=== PATIENT | male | born 1960 | race Two or more races ===

== ENCOUNTER 2021-08-30 07:59 | Inpatient (IN) | payer MEDICARE, MEDICAID ==
[~2021-08-30] VITALS: Ht 180.3 cm; Wt 133.1 kg
[2021-08-30 08:55] LABS: Basophils # (auto) 0.1 10 ^3/uL (0-0.2); Basophils % (auto) 0.7 % (0.0-2.0); Eosinophils # (auto) 0.1 10 ^3/uL (0-0.8); Eosinophils % (auto) 1.7 % (0.0-7.0); Hematocrit 51.9 % (41.0-53.0); Hemoglobin 17.7 g/dL (13.5-17.5); Lymphocytes # (auto) 0.9 10 ^3/uL (0.4-5.4); Lymphocytes % (auto) 11.2 % (10.0-50.0); Mean Corpuscular Hemoglobin 30.5 pg (28.0-32.0); Mean Corpuscular Hgb Conc. 34.1 g/dL (32.0-36.0); Mean Corpuscular Volume 89.5 fL (80.0-100.0); Monocytes # (auto) 0.9 10 ^3/uL (0-1.3); Monocytes % (auto) 10.4 % (0.0-12.0); Neutrophils # (auto) 6.3 10 ^3/uL (1.6-8.6); Nucleated Red Blood Cells % 0.1 %; Red Cell Distribution Width 13.8 % (11.8-14.3); White Blood Cell 8.3 10^3/uL (4.4-10.8)
[2021-08-30 09:13] LABS: Albumin 3.4 g/dL (3.4-5.0); Calcium 8.4 mg/dL (8.5-10.1); Potassium 4.2 mmol/L (3.5-5.1)
[2021-08-30 09:16] LABS: BUN/Creatinine Ratio 13.4; Bilirubin, Total 0.6 mg/dL (0.2-1.0); Total Protein 7.2 g/dL (6.4-8.2)
[2021-08-30 09:52] LABS: Urine Bacteria NONE SEEN /hpf (None Seen); Urine Blood Negative /uL (Negative); Urine Mucus FEW (None Seen); Urine Specific Gravity 1.023 (1.001-1.035); Urine WBC <1 /hpf (0 - 3)
[2021-08-30] MEDS ORDERED: SODIUM CHLORIDE 0.9% 1,000 ML IV ONE (10:15)
[2021-08-30] MEDS ORDERED: DEXTROSE (50%) 50ML SYRG IV PRN (11:15)
[2021-08-30] MEDS ORDERED: ALBUTEROL SULF 2.5 MG/0.5ML(0.5%) NEB SOLN NEB PRN (11:15)
[2021-08-30] MEDS ORDERED: LABETALOL HCL 5 MG/ML 4ML SYRINGE IV PRN (11:15)
[2021-08-30] MEDS ORDERED: NITROGLYCERIN 0.4 MG SL TAB SL PRN (11:15)
[2021-08-30] MEDS ORDERED: MORPHINE SULFATE INJ 2 MG/ml SYRG IV PRN ×2 (11:15)
[2021-08-30] MEDS ORDERED: LORazepam 2MG/ML-1ML VIAL IV PRN (11:15)
[2021-08-30] MEDS: InsuLIN REG 1unit/0.01ml Soln (100units/ml) SC SCH ×2 (12:00→18:00)
[2021-08-30] MEDS: ACCU-CHEK COMFORT CURVE STRIP VI SCH ×2 (12:25→18:15)
[2021-08-30 13:34] VITALS: BP 124/51
[2021-08-30 22:00] VITALS: BP 115/70
[2021-08-30 22:01] VITALS: BP 148/97
[2021-08-30] MEDS ORDERED: MONT-8 PO (23:01)
[2021-08-30] MEDS ORDERED: LISI2.5T47 PO (23:01)
[2021-08-30] MEDS ORDERED: METF-370 PO (23:02)
[2021-08-31 05:00] VITALS: BP 136/85
[2021-08-31 05:39] LABS: Basophils # (auto) 0 10 ^3/uL (0-0.2); Basophils % (auto) 0.4 % (0.0-2.0); Eosinophils # (auto) 0.2 10 ^3/uL (0-0.8); Eosinophils % (auto) 2.4 % (0.0-7.0); Hematocrit 49.6 % (41.0-53.0); Hemoglobin 17.1 g/dL (13.5-17.5); Lymphocytes # (auto) 0.9 10 ^3/uL (0.4-5.4); Lymphocytes % (auto) 12.7 % (10.0-50.0); Mean Corpuscular Hgb Conc. 34.6 g/dL (32.0-36.0); Mean Corpuscular Volume 89.7 fL (80.0-100.0); Monocytes # (auto) 0.8 10 ^3/uL (0-1.3); Monocytes % (auto) 11.8 % (0.0-12.0); Neutrophils % (auto) 72.7 % (37.0-80.0); Nucleated Red Blood Cells % 0.1 %; Red Blood Cells 5.52 10^6/uL (4.5-5.90); Red Cell Distribution Width 13.8 % (11.8-14.3); White Blood Cell 6.9 10^3/uL (4.4-10.8)
[2021-08-31] MEDS: ACCU-CHEK COMFORT CURVE STRIP VI SCH ×5 (05:55→23:45)
[2021-08-31] MEDS: InsuLIN REG 1unit/0.01ml Soln (100units/ml) SC SCH ×5 (06:00→23:45)
[2021-08-31 06:06] LABS: Albumin 3.1 g/dL (3.4-5.0); Calcium 8.3 mg/dL (8.5-10.1); Potassium 3.8 mmol/L (3.5-5.1)
[2021-08-31 06:09] LABS: BUN/Creatinine Ratio 15.8; Bilirubin, Total 0.8 mg/dL (0.2-1.0); Total Protein 6.8 g/dL (6.4-8.2)
[2021-08-31 08:15] VITALS: BP 141/83
[2021-08-31] MEDS: TRIAMCINOLONE ACET0.5% TOPICAL CRE 15GM TOP SCH (09:19)
[2021-08-31] MEDS: ENOXAPARIN SOD 40 MG/0.4 ML SYRINGE SC SCH (09:19)
[2021-08-31] MEDS: PANTOPRAZOLE 40 MG/10 ML VIAL INJ IV SCH (09:19)
[2021-08-31 12:10] VITALS: BP 120/76
[2021-08-31 16:20] VITALS: BP 152/92
[2021-08-31] MEDS ORDERED: LORazepam 0.5 MG TAB PO PRN (16:45)
[2021-08-31 22:00] VITALS: BP 129/87
[2021-09-01 05:00] VITALS: BP 127/84
[2021-09-01 05:23] LABS: Basophils # (auto) 0 10 ^3/uL (0-0.2); Basophils % (auto) 0.3 % (0.0-2.0); Eosinophils # (auto) 0.1 10 ^3/uL (0-0.8); Hematocrit 50.6 % (41.0-53.0); Hemoglobin 17.4 g/dL (13.5-17.5); Lymphocytes % (auto) 14.7 % (10.0-50.0); Mean Corpuscular Hgb Conc. 34.5 g/dL (32.0-36.0); Mean Corpuscular Volume 89.8 fL (80.0-100.0); Monocytes # (auto) 0.7 10 ^3/uL (0-1.3); Monocytes % (auto) 11.1 % (0.0-12.0); Neutrophils # (auto) 4.7 10 ^3/uL (1.6-8.6); Neutrophils % (auto) 71.9 % (37.0-80.0); Nucleated Red Blood Cells % 0.2 %; Red Blood Cells 5.63 10^6/uL (4.5-5.90); Red Cell Distribution Width 13.8 % (11.8-14.3); White Blood Cell 6.6 10^3/uL (4.4-10.8)
[2021-09-01 05:33] LABS: Magnesium 2.3 mg/dL (1.6-2.6); Potassium 4.3 mmol/L (3.5-5.1)
[2021-09-01 05:39] LABS: Albumin 3.2 g/dL (3.4-5.0); Bilirubin, Total 0.6 mg/dL (0.2-1.0); Calcium 8.8 mg/dL (8.5-10.1); Phosphorus 4.1 mg/dL (2.5-4.90)
[2021-09-01] MEDS: ACCU-CHEK COMFORT CURVE STRIP VI SCH ×4 (05:44→23:21)
[2021-09-01] MEDS: InsuLIN REG 1unit/0.01ml Soln (100units/ml) SC SCH ×4 (05:48→23:21)
[2021-09-01 08:20] VITALS: BP 130/78
[2021-09-01 09:00] VITALS: BP 130/78
[2021-09-01] MEDS: ENOXAPARIN SOD 40 MG/0.4 ML SYRINGE SC SCH (10:59)
[2021-09-01] MEDS: PANTOPRAZOLE 40 MG/10 ML VIAL INJ IV SCH (10:59)
[2021-09-01] MEDS: TRIAMCINOLONE ACET0.5% TOPICAL CRE 15GM TOP SCH (12:21)
[2021-09-01 13:00] VITALS: BP 162/92
[2021-09-01 16:38] VITALS: BP 151/84
[2021-09-01] MEDS: ACETAMINOPHEN 500 MG TAB PO PRN (16:58)
[2021-09-01 22:00] VITALS: BP 141/50
[2021-09-02] VITALS (7 sets, daily range): BP systolic 138–173; BP diastolic 81–94
[2021-09-02] MEDS: ACCU-CHEK COMFORT CURVE STRIP VI SCH ×4 (06:35→23:01)
[2021-09-02] MEDS: InsuLIN REG 1unit/0.01ml Soln (100units/ml) SC SCH ×4 (06:37→23:01)
[2021-09-02] MEDS: ACETAMINOPHEN 500 MG TAB PO PRN (06:39)
[2021-09-02] MEDS: PANTOPRAZOLE 40 MG/10 ML VIAL INJ IV SCH (09:44)
[2021-09-02] MEDS: ENOXAPARIN SOD 40 MG/0.4 ML SYRINGE SC SCH (09:45)
[2021-09-02] MEDS: TRIAMCINOLONE ACET0.5% TOPICAL CRE 15GM TOP SCH (09:45)
[2021-09-03 05:00] VITALS: BP 138/76
[2021-09-03] MEDS: ACCU-CHEK COMFORT CURVE STRIP VI SCH ×4 (06:31→23:55)
[2021-09-03] MEDS: InsuLIN REG 1unit/0.01ml Soln (100units/ml) SC SCH ×4 (06:33→23:55)
[2021-09-03 08:40] VITALS: BP 143/80
[2021-09-03] MEDS: PANTOPRAZOLE 40 MG/10 ML VIAL INJ IV SCH (08:49)
[2021-09-03] MEDS: ENOXAPARIN SOD 40 MG/0.4 ML SYRINGE SC SCH (08:49)
[2021-09-03] MEDS ORDERED: IOHEXOL 350 MG/ML 100ML IJ ONE (10:10)
[2021-09-03 11:18] LABS: INR 1.05 (0.9-1.15)
[2021-09-03] MEDS: TRIAMCINOLONE ACET0.5% TOPICAL CRE 15GM TOP SCH (12:00)
[2021-09-03 12:54] VITALS: BP 116/81
[2021-09-03 16:40] VITALS: BP 126/84
[2021-09-03 20:20] VITALS: BP 122/85
[2021-09-03 22:00] VITALS: BP 122/85
[2021-09-04 05:00] VITALS: BP 112/86
[2021-09-04] MEDS: InsuLIN REG 1unit/0.01ml Soln (100units/ml) SC SCH ×4 (06:00→23:50)
[2021-09-04] MEDS: ACCU-CHEK COMFORT CURVE STRIP VI SCH ×4 (06:25→23:50)
[2021-09-04] MEDS: PANTOPRAZOLE 40 MG/10 ML VIAL INJ IV SCH (08:52)
[2021-09-04 08:54] VITALS: BP 129/89
[2021-09-04] MEDS: ENOXAPARIN SOD 40 MG/0.4 ML SYRINGE SC SCH (09:01)
[2021-09-04] MEDS: TRIAMCINOLONE ACET0.5% TOPICAL CRE 15GM TOP SCH (09:01)
[2021-09-04] MEDS: ACETAMINOPHEN 500 MG TAB PO PRN (09:05)
[2021-09-04 13:00] VITALS: BP_SYST 128; BP_SYST 98; BP_DIAS 69; BP_DIAS 86
[2021-09-04 17:00] VITALS: BP 123/83
[2021-09-04] MEDS: metFORMIN HYDROCHLORIDE 500 MG TAB PO SCH ×2 (18:00→18:07)
[2021-09-04 19:20] LABS: Potassium 4.2 mmol/L (3.5-5.1)
[2021-09-04 19:21] LABS: BUN/Creatinine Ratio 12.6
[2021-09-04] MEDS: MONTELUKAST SODIUM 10 MG TAB PO SCH (21:45)
[2021-09-04 21:58] VITALS: BP 140/81
[2021-09-05 04:44] VITALS: BP 123/84
[2021-09-05] MEDS: InsuLIN REG 1unit/0.01ml Soln (100units/ml) SC SCH ×3 (05:53→16:59)
[2021-09-05] MEDS: ACCU-CHEK COMFORT CURVE STRIP VI SCH ×4 (05:53→21:06)
[2021-09-05] MEDS: ACETAMINOPHEN 500 MG TAB PO PRN ×2 (05:54→17:00)
[2021-09-05] MEDS: ENOXAPARIN SOD 40 MG/0.4 ML SYRINGE SC SCH (07:12)
[2021-09-05 08:20] VITALS: BP 136/87
[2021-09-05] MEDS: PANTOPRAZOLE 40 MG/10 ML VIAL INJ IV SCH (09:54)
[2021-09-05] MEDS: LISINOPRIL 5 MG TAB PO SCH (09:55)
[2021-09-05 10:59] VITALS: BP 136/87
[2021-09-05 12:30] VITALS: BP 121/88
[2021-09-05] MEDS: TRIAMCINOLONE ACET0.5% TOPICAL CRE 15GM TOP SCH (12:43)
[2021-09-05 16:42] VITALS: BP 129/84
[2021-09-05 22:24] LABS: Calcium 8.8 mg/dL (8.5-10.1); Potassium 4.3 mmol/L (3.5-5.1)
[2021-09-05] MEDS: MONTELUKAST SODIUM 10 MG TAB PO SCH (22:34)
[2021-09-06 05:00] VITALS: BP 118/76
[2021-09-06] MEDS: ACCU-CHEK COMFORT CURVE STRIP VI SCH ×4 (05:44→23:48)
[2021-09-06] MEDS: InsuLIN REG 1unit/0.01ml Soln (100units/ml) SC SCH ×5 (05:45→23:48)
[2021-09-06 06:38] LABS: BUN/Creatinine Ratio 15.8; Calcium 8.8 mg/dL (8.5-10.1)
[2021-09-06 08:25] VITALS: BP 119/86
[2021-09-06] MEDS: LISINOPRIL 5 MG TAB PO SCH (08:45)
[2021-09-06] MEDS: PANTOPRAZOLE 40 MG/10 ML VIAL INJ IV SCH (08:45)
[2021-09-06] MEDS: TRIAMCINOLONE ACET0.5% TOPICAL CRE 15GM TOP SCH (08:45)
[2021-09-06] MEDS: ENOXAPARIN SOD 40 MG/0.4 ML SYRINGE SC SCH (08:45)
[2021-09-06] MEDS: ACETAMINOPHEN 500 MG TAB PO PRN (08:55)
[2021-09-06 12:20] VITALS: BP 124/80
[2021-09-06 16:15] VITALS: BP 124/79
[2021-09-06 20:00] VITALS: BP 117/78
[2021-09-06] MEDS: MONTELUKAST SODIUM 10 MG TAB PO SCH (21:46)
[2021-09-06 22:00] VITALS: BP 117/78
[2021-09-07 05:00] VITALS: BP 134/71
[2021-09-07] MEDS: InsuLIN REG 1unit/0.01ml Soln (100units/ml) SC SCH ×4 (06:00→23:54)
[2021-09-07] MEDS: ACCU-CHEK COMFORT CURVE STRIP VI SCH ×4 (06:07→23:54)
[2021-09-07] MEDS: PANTOPRAZOLE 40 MG/10 ML VIAL INJ IV SCH (08:50)
[2021-09-07] MEDS: LISINOPRIL 5 MG TAB PO SCH (08:51)
[2021-09-07 09:05] VITALS: BP 121/73
[2021-09-07] MEDS: ENOXAPARIN SOD 40 MG/0.4 ML SYRINGE SC SCH (09:22)
[2021-09-07] MEDS: TRIAMCINOLONE ACET0.5% TOPICAL CRE 15GM TOP SCH (09:23)
[2021-09-07] MEDS ORDERED: BUPIVACAINE 0.25% INJ 50ML VIAL ONE (12:17)
[2021-09-07] MEDS ORDERED: HEPARIN SODIUM (PORCINE) 5000 UNITS/ML 1ML VIAL ONE (12:17)
[2021-09-07] MEDS ORDERED: HEPARIN 1,000 UNITS/ml 1ML VIAL ONE (12:17)
[2021-09-07 12:23] VITALS: BP 119/74
[2021-09-07] MEDS ORDERED: MIDAZOLAM HCL 2MG/2ML 2ml VIAL (1mg/ml) ONE (12:40)
[2021-09-07] MEDS ORDERED: KETAMINE HCL 10 ML ONE (12:40)
[2021-09-07] MEDS ORDERED: GLYCOPYRROLATE 0.2 MG/ML 1ML VIAL ONE (12:41)
[2021-09-07] MEDS ORDERED: LIDOCAINE 2% (LOCAL ANESTH.) PF 5ml SDV ONE (12:41)
[2021-09-07] MEDS ORDERED: PROPOFOL 10 MG/ML 20 ML IV ONE (12:41)
[2021-09-07] MEDS ORDERED: ONDANSETRON HCL 4 MG/2 ML VIAL ONE (12:41)
[2021-09-07] MEDS ORDERED: ceFAZolin 1GM VL ONE ×2 (12:41→13:34)
[2021-09-07] MEDS ORDERED: fentaNYL CITRATE 100 MCG/2 ML VL ONE (12:55)
[2021-09-07] MEDS ORDERED: ACCU-CHEK COMFORT CURVE STRIP VI ONE (14:00)
[2021-09-07] MEDS ORDERED: HYDROmorphone HCL 2 MG/ML VL/or syr IV PRN (14:00)
[2021-09-07] MEDS ORDERED: ONDANSETRON HCL 4 MG/2 ML VIAL IV PRN (14:00)
[2021-09-07 14:58] LABS: Basophils # (auto) 0.1 10 ^3/uL (0-0.2); Basophils % (auto) 0.6 % (0.0-2.0); Eosinophils # (auto) 0.1 10 ^3/uL (0-0.8); Eosinophils % (auto) 1.2 % (0.0-7.0); Hematocrit 51.4 % (41.0-53.0); Hemoglobin 16.9 g/dL (13.5-17.5); Lymphocytes # (auto) 0.9 10 ^3/uL (0.4-5.4); Lymphocytes % (auto) 11.3 % (10.0-50.0); Mean Corpuscular Hemoglobin 29.5 pg (28.0-32.0); Mean Corpuscular Hgb Conc. 32.8 g/dL (32.0-36.0); Mean Corpuscular Volume 89.9 fL (80.0-100.0); Monocytes # (auto) 0.8 10 ^3/uL (0-1.3); Monocytes % (auto) 9.6 % (0.0-12.0); Neutrophils # (auto) 6.4 10 ^3/uL (1.6-8.6); Neutrophils % (auto) 77.3 % (37.0-80.0); Nucleated Red Blood Cells % 0.1 %; Red Blood Cells 5.72 10^6/uL (4.5-5.90); Red Cell Distribution Width 13.5 % (11.8-14.3); White Blood Cell 8.3 10^3/uL (4.4-10.8)
[2021-09-07 15:06] LABS: Albumin 2.9 g/dL (3.4-5.0); Potassium 4.6 mmol/L (3.5-5.1)
[2021-09-07 15:12] LABS: BUN/Creatinine Ratio 12.6; Bilirubin, Total 0.4 mg/dL (0.2-1.0); Calcium 8.1 mg/dL (8.5-10.1); Magnesium 2.3 mg/dL (1.6-2.6); Phosphorus 3.4 mg/dL (2.5-4.90); Total Protein 6.4 g/dL (6.4-8.2)
[2021-09-07] MEDS: ACETAMINOPHEN 500 MG TAB PO PRN (15:39)
[2021-09-07 16:39] VITALS: BP 116/69
[2021-09-07 20:00] VITALS: BP 104/84
[2021-09-07 21:54] VITALS: BP 104/84
[2021-09-07] MEDS: MONTELUKAST SODIUM 10 MG TAB PO SCH (21:56)
[2021-09-08 04:56] VITALS: BP 109/72
[2021-09-08] MEDS: ACCU-CHEK COMFORT CURVE STRIP VI SCH ×2 (05:55→12:14)
[2021-09-08] MEDS: InsuLIN REG 1unit/0.01ml Soln (100units/ml) SC SCH ×2 (06:00→12:00)
[2021-09-08 07:17] VITALS: BP 109/72
[2021-09-08 08:40] VITALS: BP 126/81
[2021-09-08] MEDS: ENOXAPARIN SOD 40 MG/0.4 ML SYRINGE SC SCH (09:26)
[2021-09-08] MEDS: LISINOPRIL 5 MG TAB PO SCH (09:26)
[2021-09-08] MEDS: PANTOPRAZOLE 40 MG/10 ML VIAL INJ IV SCH (09:26)
[2021-09-08] MEDS: TRIAMCINOLONE ACET0.5% TOPICAL CRE 15GM TOP SCH (09:30)
[2021-09-08] MEDS ORDERED: LISI-275 PO (09:54)
[2021-09-08] MEDS ORDERED: LORA0.5T20 PO (09:54)
[2021-09-08] MEDS ORDERED: METF-370 PO (10:41)
[2021-09-08] MEDS ORDERED: MONT-8 PO (10:41)
[2021-09-08] MEDS ORDERED: HYDR-4798 PO (10:42)
[2021-09-08 13:00] VITALS: BP 123/77
[2021-09-08] MEDS: ACETAMINOPHEN 500 MG TAB PO PRN (14:26)
[2021-09-08 14:47] VITALS: BP 126/91
[2021-09-08 16:47] VITALS: BP 124/74
== END 2021-09-08 17:28 | disposition home health service (06) | DRG 375 ==
LOC: ER 07:59 → OVERFLOW 11:26 → CENTRAL 20:05 → WEST WING 09-01 09:55
PROVIDERS: ADMIT Family Medicine; ATTEND Internal Medicine
PROC: B5171ZA Fluoroscopy of Left Subclavian Vein using Low Osmolar Contrast, Guidance (ICD-10-PCS; 2021-09-07)
PROC: 05H633Z Insertion of Infusion Device into Left Subclavian Vein, Percutaneous Approach (ICD-10-PCS; principal; 2021-09-07 12:00)
DX: C18.9 Malignant neoplasm of colon, unspecified (principal); C78.7 Secondary malignant neoplasm of liver and intrahepatic bile duct; E44.1 Mild protein-calorie malnutrition; Z68.41 Body mass index [BMI] 40.0-44.9, adult; E86.0 Dehydration; E11.65 Type 2 diabetes mellitus with hyperglycemia; E78.5 Hyperlipidemia, unspecified; G89.29 Other chronic pain; J45.909 Unspecified asthma, uncomplicated; H91.90 Unspecified hearing loss, unspecified ear; I10 Essential (primary) hypertension; L30.9 Dermatitis, unspecified; E66.01 Morbid (severe) obesity due to excess calories; Z80.8 Family history of malignant neoplasm of other organs or systems; Z85.038 Personal history of other malignant neoplasm of large intestine; Z71.3 Dietary counseling and surveillance; K29.70 Gastritis, unspecified, without bleeding; Z79.84 Long term (current) use of oral hypoglycemic drugs
CPT/HCPCS: 36415; 71045; 71260; 74176; 74177; 76000; 78306; 80048; 80053; 80061; 81001; 82140; 82378; 82962; 83036; 83690; 83735; 84100; 84154; 84443; 85025; 85610; 86850; 86900; 86901; 93005; 96361; 96372; 96374; C9113; G0378; J0690; J1815; J2001; J2250; J2405; J2704; J3490

== ENCOUNTER 2021-09-16 14:49 | Inpatient (IN) | payer MEDICARE, MEDICAID ==
[~2021-09-16] VITALS: Ht 190.5 cm; Wt 134.5 kg
[~2021-09-16 14:49] MED LIST: HYDR-4798 PO; LISI-275 PO; LISI2.5T47 PO; LORA0.5T20 PO; METF-370 PO; MONT-8 PO
[2021-09-16 16:43] LABS: Basophils # (auto) 0.1 10 ^3/uL (0-0.2); Basophils % (auto) 0.4 % (0.0-2.0); Eosinophils # (auto) 0 10 ^3/uL (0-0.8); Eosinophils % (auto) 0.1 % (0.0-7.0); Hematocrit 53.4 % (41.0-53.0); Hemoglobin 17.5 g/dL (13.5-17.5); Lymphocytes # (auto) 0.4 10 ^3/uL (0.4-5.4); Lymphocytes % (auto) 2.9 % (10.0-50.0); Mean Corpuscular Hgb Conc. 32.8 g/dL (32.0-36.0); Mean Corpuscular Volume 88.4 fL (80.0-100.0); Monocytes % (auto) 6.9 % (0.0-12.0); Neutrophils # (auto) 13.4 10 ^3/uL (1.6-8.6); Neutrophils % (auto) 89.7 % (37.0-80.0); Nucleated Red Blood Cells % 0.1 %; Red Blood Cells 6.04 10^6/uL (4.5-5.90); Red Cell Distribution Width 13.7 % (11.8-14.3)
[2021-09-16 16:59] LABS: Albumin 3.4 g/dL (3.4-5.0); Calcium 8.8 mg/dL (8.5-10.1)
[2021-09-16 17:03] LABS: BUN/Creatinine Ratio 16.7; Bilirubin, Total 0.9 mg/dL (0.2-1.0); Total Protein 7.3 g/dL (6.4-8.2)
[2021-09-16] MEDS ORDERED: ONDANSETRON HCL 4 MG/2 ML VIAL IV ONE (18:45)
[2021-09-16] MEDS ORDERED: HYDROmorphone HCL 2 MG/ML VL/or syr IV ONE (18:45)
[2021-09-16] MEDS ORDERED: SODIUM CHLORIDE 0.9% 1,000 ML IV ONE (18:45)
[2021-09-16] MEDS ORDERED: PIPERACILLIN-TAZO 4.5GM 100 ML IV ONE (22:00)
[2021-09-16 22:29] LABS: Urine Bacteria NONE SEEN /hpf (None Seen); Urine Blood Negative /uL (Negative); Urine Mucus MODERATE (None Seen); Urine Specific Gravity 1.029 (1.001-1.035); Urine WBC 3 /hpf (0 - 3)
[2021-09-16] MEDS ORDERED: NITROGLYCERIN 0.4 MG SL TAB SL PRN (22:30)
[2021-09-16] MEDS ORDERED: MORPHINE SULFATE INJ 2 MG/ml SYRG IV PRN (22:30)
[2021-09-16] MEDS ORDERED: ALBUTEROL SULF 2.5 MG/0.5ML(0.5%) NEB SOLN NEB PRN (22:45)
[2021-09-16] MEDS ORDERED: IPRATROPIUM BROM 0.5 MG/2.5ML INH SOL NEB PRN (22:45)
[2021-09-16] MEDS ORDERED: ONDANSETRON HCL 4 MG/2 ML VIAL IV PRN (22:45)
[2021-09-16] MEDS ORDERED: hydrALAZINE HCL 20 MG/ML VL IV PRN (22:45)
[2021-09-16 23:01] VITALS: BP 107/65
[2021-09-16 23:49] LABS: INR 1.08 (0.9-1.15); Partial Thromboplastin Time 28.3 sec (23.6-33.0)
[2021-09-17] MEDS: HYDROmorphone HCL 2 MG/ML VL/or syr IV PRN (01:22)
[2021-09-17] MEDS: metroNIDAZOLE 500MG/100ML 100 ML IV SCH ×4 (01:33→21:41)
[2021-09-17] MEDS: SODIUM CHLORIDE 0.9% 1,000 ML IV SCH ×3 (04:06→18:45)
[2021-09-17 05:00] VITALS: BP 115/66
[2021-09-17 06:45] LABS: Basophils # (auto) 0 10 ^3/uL (0-0.2); Basophils % (auto) 0.2 % (0.0-2.0); Eosinophils # (auto) 0 10 ^3/uL (0-0.8); Eosinophils % (auto) 0.2 % (0.0-7.0); Hematocrit 46.7 % (41.0-53.0); Hemoglobin 15.7 g/dL (13.5-17.5); Lymphocytes # (auto) 0.6 10 ^3/uL (0.4-5.4); Lymphocytes % (auto) 5.1 % (10.0-50.0); Mean Corpuscular Hemoglobin 29.7 pg (28.0-32.0); Mean Corpuscular Hgb Conc. 33.5 g/dL (32.0-36.0); Mean Corpuscular Volume 88.8 fL (80.0-100.0); Monocytes # (auto) 1.5 10 ^3/uL (0-1.3); Monocytes % (auto) 11.5 % (0.0-12.0); Neutrophils # (auto) 10.5 10 ^3/uL (1.6-8.6); Red Blood Cells 5.26 10^6/uL (4.5-5.90); White Blood Cell 12.6 10^3/uL (4.4-10.8)
[2021-09-17] MEDS: PIPERACILLIN-TAZOB 3.375GM 100 ML IV SCH ×4 (06:46→23:24)
[2021-09-17 06:55] LABS: Albumin 2.8 g/dL (3.4-5.0); Calcium 8.3 mg/dL (8.5-10.1); Potassium 3.9 mmol/L (3.5-5.1)
[2021-09-17 06:59] LABS: BUN/Creatinine Ratio 16.9; Bilirubin, Total 1.3 mg/dL (0.2-1.0); Total Protein 6.5 g/dL (6.4-8.2)
[2021-09-17] MEDS ORDERED: HYDROmorphone HCL 2 MG/ML VL/or syr ONE (08:23)
[2021-09-17] MEDS ORDERED: fentaNYL CITRATE 100 MCG/2 ML VL ONE (08:23)
[2021-09-17] MEDS ORDERED: ROCURONIUM 10MG/ML 10ML VIAL IV ONE (08:23)
[2021-09-17] MEDS ORDERED: MIDAZOLAM HCL 2MG/2ML 2ml VIAL (1mg/ml) ONE (08:23)
[2021-09-17] MEDS ORDERED: ONDANSETRON HCL 4 MG/2 ML VIAL ONE (08:24)
[2021-09-17] MEDS ORDERED: GLYCOPYRROLATE 0.2 MG/ML 1ML VIAL ONE (08:24)
[2021-09-17] MEDS ORDERED: PROPOFOL 10 MG/ML 20 ML IV ONE (08:24)
[2021-09-17] MEDS ORDERED: KETOROLAC TROMETH 30 MG/ML 1ML VIAL ONE (08:24)
[2021-09-17] MEDS ORDERED: ePHEDrine SULFATE 50 MG/ML AMP ONE (08:24)
[2021-09-17] MEDS ORDERED: ceFAZolin 1GM/50ML 100 ML IV ONE (08:51)
[2021-09-17 08:57] VITALS: BP 114/69
[2021-09-17 09:00] VITALS: BP 114/69
[2021-09-17] MEDS ORDERED: PANTOPRAZOLE 40 MG/10 ML VIAL INJ IV SCH (10:00)
[2021-09-17] MEDS ORDERED: FAMOTIDINE (10MG/ML) 2ML VL IV ONE (10:04)
[2021-09-17] MEDS ORDERED: SUCCINYLCHOLINE CHLORIDE 20 MG/ML 10ML VIAL IV ONE (10:05)
[2021-09-17] MEDS ORDERED: fentaNYL CITRATE 5 ML ONE (11:22)
[2021-09-17] MEDS ORDERED: SUGAMMADEX 200mg/2ml Vial (100MG/ML) IV ONE (11:31)
[2021-09-17] MEDS ORDERED: HYDROmorphone HCL 2 MG/ML VL/or syr IV PRN (12:30)
[2021-09-17] MEDS ORDERED: ACCU-CHEK COMFORT CURVE STRIP VI ONE (12:30)
[2021-09-17] MEDS ORDERED: ONDANSETRON HCL 4 MG/2 ML VIAL IV PRN (12:30)
[2021-09-17 13:00] VITALS: BP 117/64
[2021-09-17 16:33] VITALS: BP 114/71
[2021-09-17 16:49] LABS: Magnesium 2.1 mg/dL (1.6-2.6); Phosphorus 3.3 mg/dL (2.5-4.90)
[2021-09-17] MEDS ORDERED: LIDOCAINE 1% (LOCAL ANESTH.) PF 5ml SDV ID ONE (18:45)
[2021-09-17] MEDS ORDERED: AMINO ACID INFUSION IN D10W 1,000 ML IV NR (20:00)
[2021-09-17] MEDS: SODIUM CHLOR 0.9% PF (SALINE LOCK) 10ML VIAL/SYR IV SCH (21:41)
[2021-09-17 22:38] VITALS: BP 106/68
[2021-09-17] MEDS: ACCU-CHEK COMFORT CURVE STRIP VI SCH (23:20)
[2021-09-17] MEDS: InsuLIN REG 1unit/0.01ml Soln (100units/ml) SC SCH (23:23)
[2021-09-18] MEDS ORDERED: DEXTROSE (50%) 50ML SYRG IV SCH
[2021-09-18 05:00] VITALS: BP 108/65
[2021-09-18] MEDS: metroNIDAZOLE 500MG/100ML 100 ML IV SCH ×3 (05:39→21:54)
[2021-09-18] MEDS: SODIUM CHLORIDE 0.9% 1,000 ML IV SCH ×2 (06:01→15:29)
[2021-09-18] MEDS: ACCU-CHEK COMFORT CURVE STRIP VI SCH ×4 (06:40→23:26)
[2021-09-18] MEDS: PIPERACILLIN-TAZOB 3.375GM 100 ML IV SCH ×4 (06:40→23:37)
[2021-09-18] MEDS: InsuLIN REG 1unit/0.01ml Soln (100units/ml) SC SCH ×4 (06:49→23:27)
[2021-09-18 07:02] LABS: Magnesium 2.1 mg/dL (1.6-2.6)
[2021-09-18 07:10] LABS: Albumin 2.5 g/dL (3.4-5.0); BUN/Creatinine Ratio 17.1; Bilirubin, Total 0.5 mg/dL (0.2-1.0); Calcium 8.2 mg/dL (8.5-10.1); Phosphorus 2.2 mg/dL (2.5-4.90); Total Protein 6.2 g/dL (6.4-8.2)
[2021-09-18 08:00] VITALS: BP 102/60
[2021-09-18 09:00] VITALS: BP 102/60
[2021-09-18] MEDS ORDERED: SODIUM PHOSPH 24MEQ(18MMOL) IN NS 100 ML IV ONE (10:15)
[2021-09-18 11:49] LABS: Albumin 2.5 g/dL (3.4-5.0); BUN/Creatinine Ratio 17.8; Magnesium 2.3 mg/dL (1.6-2.6); Potassium 3.9 mmol/L (3.5-5.1)
[2021-09-18 11:52] LABS: Bilirubin, Total 0.4 mg/dL (0.2-1.0); Phosphorus 1.8 mg/dL (2.5-4.90); Total Protein 6.1 g/dL (6.4-8.2)
[2021-09-18] MEDS: HYDROmorphone HCL 2 MG/ML VL/or syr IV PRN ×2 (12:13→23:24)
[2021-09-18] MEDS: SODIUM CHLOR 0.9% PF (SALINE LOCK) 10ML VIAL/SYR IV SCH ×2 (12:18→21:54)
[2021-09-18 12:44] VITALS: BP 109/63
[2021-09-18 16:44] VITALS: BP 108/71
[2021-09-18] MEDS ORDERED: TPN PER PHARMACY IV NR ×11 (20:00)
[2021-09-18 22:00] VITALS: BP 124/67
[2021-09-19] MEDS: SODIUM CHLORIDE 0.9% 1,000 ML IV SCH ×3 (00:45→20:45)
[2021-09-19 05:00] VITALS: BP 112/70
[2021-09-19] MEDS: metroNIDAZOLE 500MG/100ML 100 ML IV SCH ×2 (05:15→15:41)
[2021-09-19] MEDS: ACCU-CHEK COMFORT CURVE STRIP VI SCH ×3 (05:24→17:21)
[2021-09-19] MEDS: InsuLIN REG 1unit/0.01ml Soln (100units/ml) SC SCH ×3 (05:37→17:18)
[2021-09-19] MEDS: PIPERACILLIN-TAZOB 3.375GM 100 ML IV SCH ×3 (06:17→17:20)
[2021-09-19 06:36] LABS: Potassium 3.7 mmol/L (3.5-5.1)
[2021-09-19 06:48] LABS: Albumin 2.4 g/dL (3.4-5.0); BUN/Creatinine Ratio 17.9; Bilirubin, Total 0.5 mg/dL (0.2-1.0); Calcium 7.6 mg/dL (8.5-10.1); Magnesium 2.5 mg/dL (1.6-2.6); Phosphorus 3.1 mg/dL (2.5-4.90); Total Protein 6.1 g/dL (6.4-8.2)
[2021-09-19 08:35] VITALS: BP 109/75
[2021-09-19] MEDS: SODIUM CHLOR 0.9% PF (SALINE LOCK) 10ML VIAL/SYR IV SCH (09:48)
[2021-09-19] MEDS ORDERED: TPN PER PHARMACY 0 ML IV SCH (12:00)
[2021-09-19] MEDS ORDERED: CALCIUM GLUC 1,000mg/50ml-NS 50 ML IV ONE (12:00)
[2021-09-19 12:35] VITALS: BP 119/73
[2021-09-19 16:30] VITALS: BP 129/85
[2021-09-19] MEDS ORDERED: TPN PER PHARMACY IV NR ×10 (20:00)
[2021-09-19] MEDS: HYDROmorphone HCL 2 MG/ML VL/or syr IV PRN (20:32)
[2021-09-19 22:00] VITALS: BP 119/72
[2021-09-19 23:00] VITALS: BP 119/72
[2021-09-20] MEDS: PIPERACILLIN-TAZOB 3.375GM 100 ML IV SCH ×5 (01:14→23:45)
[2021-09-20] MEDS: metroNIDAZOLE 500MG/100ML 100 ML IV SCH ×4 (01:14→20:39)
[2021-09-20] MEDS: SODIUM CHLOR 0.9% PF (SALINE LOCK) 10ML VIAL/SYR IV SCH ×3 (01:15→22:25)
[2021-09-20 05:00] VITALS: BP 115/73
[2021-09-20] MEDS: ACCU-CHEK COMFORT CURVE STRIP VI SCH ×5 (06:00→23:45)
[2021-09-20] MEDS: InsuLIN REG 1unit/0.01ml Soln (100units/ml) SC SCH ×5 (06:00→23:46)
[2021-09-20 06:44] LABS: Albumin 2.5 g/dL (3.4-5.0); Calcium 8.4 mg/dL (8.5-10.1); Magnesium 2.4 mg/dL (1.6-2.6); Potassium 4.6 mmol/L (3.5-5.1)
[2021-09-20 06:46] LABS: BUN/Creatinine Ratio 14.8; Phosphorus 3.8 mg/dL (2.5-4.90)
[2021-09-20] MEDS: SODIUM CHLORIDE 0.9% 1,000 ML IV SCH ×2 (07:04→16:45)
[2021-09-20 09:00] VITALS: BP 114/80
[2021-09-20] MEDS: HYDROmorphone HCL 2 MG/ML VL/or syr IV PRN ×2 (15:07→22:47)
[2021-09-20 17:00] VITALS: BP 130/80
[2021-09-20] MEDS ORDERED: TPN PER PHARMACY IV NR ×9 (20:00)
[2021-09-20 22:00] VITALS: BP 130/80
[2021-09-21] MEDS: SODIUM CHLORIDE 0.9% 1,000 ML IV SCH ×3 (03:10→22:45)
[2021-09-21 05:00] VITALS: BP 127/74
[2021-09-21] MEDS: metroNIDAZOLE 500MG/100ML 100 ML IV SCH ×2 (05:00→14:21)
[2021-09-21] MEDS: ACCU-CHEK COMFORT CURVE STRIP VI SCH ×3 (06:03→18:00)
[2021-09-21] MEDS: PIPERACILLIN-TAZOB 3.375GM 100 ML IV SCH ×2 (06:03→11:47)
[2021-09-21] MEDS: InsuLIN REG 1unit/0.01ml Soln (100units/ml) SC SCH ×3 (06:05→18:56)
[2021-09-21 06:12] LABS: Basophils # (auto) 0 10 ^3/uL (0-0.2); Basophils % (auto) 0.4 % (0.0-2.0); Eosinophils # (auto) 0.3 10 ^3/uL (0-0.8); Eosinophils % (auto) 3.1 % (0.0-7.0); Hematocrit 49.3 % (41.0-53.0); Hemoglobin 16.4 g/dL (13.5-17.5); Lymphocytes # (auto) 0.9 10 ^3/uL (0.4-5.4); Lymphocytes % (auto) 9.9 % (10.0-50.0); Mean Corpuscular Hemoglobin 29.5 pg (28.0-32.0); Mean Corpuscular Hgb Conc. 33.2 g/dL (32.0-36.0); Mean Corpuscular Volume 88.7 fL (80.0-100.0); Monocytes % (auto) 11.6 % (0.0-12.0); Neutrophils # (auto) 6.7 10 ^3/uL (1.6-8.6); Nucleated Red Blood Cells % 0.3 %; Red Blood Cells 5.56 10^6/uL (4.5-5.90); Red Cell Distribution Width 13.8 % (11.8-14.3); White Blood Cell 8.9 10^3/uL (4.4-10.8)
[2021-09-21 06:33] LABS: Potassium 3.5 mmol/L (3.5-5.1)
[2021-09-21 06:44] LABS: Albumin 2.3 g/dL (3.4-5.0); BUN/Creatinine Ratio 23.3; Bilirubin, Total 0.4 mg/dL (0.2-1.0); Calcium 7.9 mg/dL (8.5-10.1); Magnesium 2.4 mg/dL (1.6-2.6); Phosphorus 3.5 mg/dL (2.5-4.90)
[2021-09-21] MEDS: HYDROmorphone HCL 2 MG/ML VL/or syr IV PRN ×3 (06:54→20:56)
[2021-09-21 09:00] VITALS: BP 114/74
[2021-09-21] MEDS ORDERED: POTASSIUM CHL 20MEQ/100ML 100 ML IV ONE (11:10)
[2021-09-21] MEDS: SODIUM CHLOR 0.9% PF (SALINE LOCK) 10ML VIAL/SYR IV SCH ×2 (11:47→22:21)
[2021-09-21 13:00] VITALS: BP 110/78
[2021-09-21 16:58] VITALS: BP 122/71
[2021-09-21] MEDS ORDERED: TPN PER PHARMACY IV NR ×10 (20:00)
[2021-09-21] MEDS: levoFLOXacin 750MG 150 ML IV SCH (21:19)
[2021-09-21 22:00] VITALS: BP_SYST 106; BP_SYST 120; BP_DIAS 59; BP_DIAS 79
[2021-09-22] MEDS: ACCU-CHEK COMFORT CURVE STRIP VI SCH ×5 (00:48→23:46)
[2021-09-22] MEDS: metroNIDAZOLE 500MG/100ML 100 ML IV SCH ×4 (00:48→22:00)
[2021-09-22] MEDS: InsuLIN REG 1unit/0.01ml Soln (100units/ml) SC SCH ×5 (00:52→23:51)
[2021-09-22] MEDS: HYDROmorphone HCL 2 MG/ML VL/or syr IV PRN ×4 (02:44→20:11)
[2021-09-22 05:00] VITALS: BP 115/72
[2021-09-22 05:23] LABS: Albumin 2.3 g/dL (3.4-5.0); BUN/Creatinine Ratio 20.3; Calcium 7.6 mg/dL (8.5-10.1); Magnesium 2.2 mg/dL (1.6-2.6); Potassium 3.8 mmol/L (3.5-5.1)
[2021-09-22 05:26] LABS: Bilirubin, Total 0.4 mg/dL (0.2-1.0); Phosphorus 2.9 mg/dL (2.5-4.90); Total Protein 5.9 g/dL (6.4-8.2)
[2021-09-22] MEDS: SODIUM CHLORIDE 0.9% 1,000 ML IV SCH ×2 (08:45→18:45)
[2021-09-22 09:00] VITALS: BP 114/73
[2021-09-22] MEDS: SODIUM CHLOR 0.9% PF (SALINE LOCK) 10ML VIAL/SYR IV SCH ×2 (10:00→22:45)
[2021-09-22 13:00] VITALS: BP 115/76
[2021-09-22 16:55] VITALS: BP_SYST 133; BP_SYST 135; BP_DIAS 70; BP_DIAS 79
[2021-09-22] MEDS ORDERED: TPN PER PHARMACY IV NR ×10 (20:00)
[2021-09-22] MEDS: levoFLOXacin 750MG 150 ML IV SCH (20:30)
[2021-09-22 22:00] VITALS: BP 116/64
[2021-09-23] MEDS: HYDROmorphone HCL 2 MG/ML VL/or syr IV PRN ×5 (00:15→23:15)
[2021-09-23] MEDS: SODIUM CHLORIDE 0.9% 1,000 ML IV SCH ×2 (04:45→14:12)
[2021-09-23 05:00] VITALS: BP 107/66
[2021-09-23 05:43] LABS: Albumin 2.4 g/dL (3.4-5.0); Calcium 7.9 mg/dL (8.5-10.1); Magnesium 2.4 mg/dL (1.6-2.6)
[2021-09-23] MEDS: ACCU-CHEK COMFORT CURVE STRIP VI SCH ×3 (05:46→16:41)
[2021-09-23 05:47] LABS: BUN/Creatinine Ratio 17.2; Bilirubin, Total 0.4 mg/dL (0.2-1.0); Total Protein 6.1 g/dL (6.4-8.2)
[2021-09-23] MEDS: InsuLIN REG 1unit/0.01ml Soln (100units/ml) SC SCH ×3 (05:47→17:29)
[2021-09-23] MEDS: metroNIDAZOLE 500MG/100ML 100 ML IV SCH ×3 (05:48→23:12)
[2021-09-23 09:03] VITALS: BP 115/66
[2021-09-23] MEDS: SODIUM CHLOR 0.9% PF (SALINE LOCK) 10ML VIAL/SYR IV SCH (10:38)
[2021-09-23 13:00] VITALS: BP 115/74
[2021-09-23 16:26] VITALS: BP 121/75
[2021-09-23] MEDS ORDERED: TPN PER PHARMACY IV NR ×10 (20:00)
[2021-09-23] MEDS: levoFLOXacin 750MG 150 ML IV SCH (20:18)
[2021-09-23 22:00] VITALS: BP 128/79
[2021-09-24] MEDS: SODIUM CHLORIDE 0.9% 1,000 ML IV SCH ×3 (00:45→13:06)
[2021-09-24 05:00] VITALS: BP 120/73
[2021-09-24] MEDS: InsuLIN REG 1unit/0.01ml Soln (100units/ml) SC SCH ×4 (06:00→17:12)
[2021-09-24] MEDS: ACCU-CHEK COMFORT CURVE STRIP VI SCH ×4 (06:00→17:12)
[2021-09-24] MEDS: metroNIDAZOLE 500MG/100ML 100 ML IV SCH ×2 (06:58→13:06)
[2021-09-24] MEDS: SODIUM CHLOR 0.9% PF (SALINE LOCK) 10ML VIAL/SYR IV SCH ×2 (06:58→10:04)
[2021-09-24 09:16] VITALS: BP 122/77
[2021-09-24] MEDS: HYDROmorphone HCL 2 MG/ML VL/or syr IV PRN (10:32)
[2021-09-24 13:00] VITALS: BP 133/75
[2021-09-24 16:28] VITALS: BP 135/71
[2021-09-24] MEDS ORDERED: ALPR0.25 PO (17:12)
[2021-09-24] MEDS ORDERED: HYDR-4902 PO (17:12)
[2021-09-24] MEDS ORDERED: ZOLP10TA PO (17:12)
[2021-09-24] MEDS ORDERED: LEVO500T31 PO (17:18)
== END 2021-09-24 19:29 | disposition home or self-care (01) | DRG 853 ==
LOC: ER 14:49 → EDBD 14:49 → OVERFLOW 22:30 → WEST WING 23:51
PROVIDERS: ADMIT Family Medicine; ATTEND Nurse Practitioner
PROC: 0WJG4ZZ Inspection of Peritoneal Cavity, Percutaneous Endoscopic Approach (ICD-10-PCS; 2021-09-17)
PROC: 0DTJ0ZZ Resection of Appendix, Open Approach (ICD-10-PCS; principal; 2021-09-17 10:26)
DX: A41.9 Sepsis, unspecified organism (principal); K35.32 Acute appendicitis with perforation, localized peritonitis, and gangrene, without abscess; C78.6 Secondary malignant neoplasm of retroperitoneum and peritoneum; E86.0 Dehydration; E11.65 Type 2 diabetes mellitus with hyperglycemia; H91.90 Unspecified hearing loss, unspecified ear; Z20.822 Contact with and (suspected) exposure to COVID-19; Z53.31 Laparoscopic surgical procedure converted to open procedure; Z85.05 Personal history of malignant neoplasm of liver; Z85.118 Personal history of other malignant neoplasm of bronchus and lung; Z79.84 Long term (current) use of oral hypoglycemic drugs; E66.01 Morbid (severe) obesity due to excess calories
CPT/HCPCS: 36415; 36569; 71045; 74176; 80053; 80069; 81001; 82150; 82962; 83690; 83735; 84100; 84443; 84478; 84484; 85025; 85610; 85730; 86850; 86900; 86901; 87070; 87075; 87081; 87205; 93005; 96361; 96365; 96366; 96375; G0378; J0330; J0690; J1815; J1885; J1956; J2250; J2405; J2543; J2704; J3480; J3490

== ENCOUNTER 2021-10-25 15:07 | Inpatient (IN) | payer MEDICARE, MEDICAID ==
[~2021-10-25] VITALS: Ht 180.3 cm; Wt 127.3 kg
[~2021-10-25 15:07] MED LIST changes: +ALPR0.25 PO; -HYDR-4798 PO; +HYDR-4902 PO; +LEVO500T31 PO; -LISI2.5T47 PO; +ZOLP10TA PO
[2021-10-25 16:49] LABS: Basophils # (auto) 0 10 ^3/uL (0-0.2); Basophils % (auto) 0.2 % (0.0-2.0); Eosinophils # (auto) 0 10 ^3/uL (0-0.8); Hematocrit 51.5 % (41.0-53.0); Hemoglobin 16.8 g/dL (13.5-17.5); Lymphocytes # (auto) 0.5 10 ^3/uL (0.4-5.4); Lymphocytes % (auto) 2.2 % (10.0-50.0); Mean Corpuscular Hemoglobin 28.6 pg (28.0-32.0); Mean Corpuscular Hgb Conc. 32.5 g/dL (32.0-36.0); Monocytes # (auto) 1.5 10 ^3/uL (0-1.3); Monocytes % (auto) 6.9 % (0.0-12.0); Neutrophils # (auto) 19.1 10 ^3/uL (1.6-8.6); Neutrophils % (auto) 90.7 % (37.0-80.0); Nucleated Red Blood Cells % 0.1 %; Red Blood Cells 5.86 10^6/uL (4.5-5.90); Red Cell Distribution Width 14.5 % (11.8-14.3)
[2021-10-25 17:29] LABS: Albumin 3.1 g/dL (3.4-5.0); BUN/Creatinine Ratio 11.3
[2021-10-25 17:32] LABS: Bilirubin, Total 1.2 mg/dL (0.2-1.0); Total Protein 7.6 g/dL (6.4-8.2)
[2021-10-26] MEDS ORDERED: ACETAMINOPHEN 325 MG TAB PO PRN (00:30)
[2021-10-26] MEDS ORDERED: DOCUSATE SOD 100 MG CAP PO PRN (00:30)
[2021-10-26] MEDS ORDERED: NITROGLYCERIN 0.4 MG SL TAB SL PRN (00:30)
[2021-10-26] MEDS ORDERED: ONDANSETRON HCL 4 MG/2 ML VIAL IV PRN (00:30)
[2021-10-26] MEDS ORDERED: MORPHINE SULFATE INJ 2 MG/ml SYRG IV PRN (00:30)
[2021-10-26 01:46] LABS: Basophils # (auto) 0.1 10 ^3/uL (0-0.2); Basophils % (auto) 0.3 % (0.0-2.0); Eosinophils # (auto) 0 10 ^3/uL (0-0.8); Hematocrit 49.1 % (41.0-53.0); Hemoglobin 16.9 g/dL (13.5-17.5); Lymphocytes # (auto) 0.8 10 ^3/uL (0.4-5.4); Mean Corpuscular Hgb Conc. 34.5 g/dL (32.0-36.0); Mean Corpuscular Volume 87.1 fL (80.0-100.0); Monocytes # (auto) 2.1 10 ^3/uL (0-1.3); Monocytes % (auto) 10.5 % (0.0-12.0); Neutrophils # (auto) 16.7 10 ^3/uL (1.6-8.6); Neutrophils % (auto) 85.2 % (37.0-80.0); Nucleated Red Blood Cells % 0.1 %; Red Blood Cells 5.63 10^6/uL (4.5-5.90); Red Cell Distribution Width 14.7 % (11.8-14.3); White Blood Cell 19.6 10^3/uL (4.4-10.8)
[2021-10-26 01:49] LABS: Potassium 4.2 mmol/L (3.5-5.1)
[2021-10-26] MEDS: HYDROcodone-ACET 5/325MG TAB PO PRN ×3 (03:13→16:07)
[2021-10-26 06:52] LABS: Urine Bacteria NONE SEEN /hpf (None Seen); Urine Blood Negative /uL (Negative); Urine Mucus FEW (None Seen); Urine Specific Gravity 1.024 (1.001-1.035); Urine WBC 1 /hpf (0 - 3)
[2021-10-26] MEDS ORDERED: MORPHINE SULFATE 4 MG/ML SYR/VIAL IV PRN (08:00)
[2021-10-26] MEDS ORDERED: LORazepam 0.5 MG TAB PO PRN (08:15)
[2021-10-26] MEDS ORDERED: MONTELUKAST SODIUM 10 MG TAB PO SCH (10:00)
[2021-10-26] MEDS: METOPROLOL TARTRATE 25 MG TAB PO SCH ×2 (10:32→22:26)
[2021-10-26] MEDS: PANTOPRAZOLE 40 MG TAB PO SCH (10:32)
[2021-10-26] MEDS: ENOXAPARIN SOD 40 MG/0.4 ML SYRINGE SC SCH (10:33)
[2021-10-26] MEDS: LISINOPRIL 5 MG TAB PO SCH (10:33)
[2021-10-26] MEDS: metFORMIN HYDROCHLORIDE 500 MG TAB PO SCH ×2 (10:34→22:26)
[2021-10-26] MEDS ORDERED: PIPERACILLIN-TAZOB 3.375GM 100 ML IV SCH ×2 (14:00→22:00)
[2021-10-26] MEDS ORDERED: PIPERACILLIN-TAZOB 3.375GM 100 ML IV ONE ×2 (18:45)
[2021-10-26] MEDS: PIPERACILLIN-TAZOB 3.375GM 100 ML IV SCH (20:45)
[2021-10-26] MEDS: ZOLPIDEM TARTRATE 5 MG TAB PO SCH (20:45)
[2021-10-27 01:40] VITALS: BP 133/70
[2021-10-27] MEDS ORDERED: PIPERACILLIN-TAZOB 3.375GM 100 ML IV SCH (02:00)
[2021-10-27] MEDS: HYDROcodone-ACET 5/325MG TAB PO PRN (02:05)
[2021-10-27] MEDS: PIPERACILLIN-TAZOB 3.375GM 100 ML IV SCH ×3 (04:25→21:57)
[2021-10-27 05:00] VITALS: BP 94/61
[2021-10-27 09:00] VITALS: BP 115/65
[2021-10-27] MEDS: PANTOPRAZOLE 40 MG TAB PO SCH (09:59)
[2021-10-27] MEDS: metFORMIN HYDROCHLORIDE 500 MG TAB PO SCH ×2 (10:00→23:12)
[2021-10-27] MEDS: LISINOPRIL 5 MG TAB PO SCH (10:00)
[2021-10-27] MEDS: METOPROLOL TARTRATE 25 MG TAB PO SCH ×2 (10:01→23:13)
[2021-10-27] MEDS: ENOXAPARIN SOD 40 MG/0.4 ML SYRINGE SC SCH (10:05)
[2021-10-27] MEDS ORDERED: HYDROmorphone HCL 2 MG/ML VL/or syr IV PRN (12:00)
[2021-10-27 13:00] VITALS: BP 120/72
[2021-10-27] MEDS: MORPHINE SULF 15mg ER tab PO SCH ×2 (15:29→23:13)
[2021-10-27 16:30] VITALS: BP 127/75
[2021-10-27] MEDS: ZOLPIDEM TARTRATE 5 MG TAB PO SCH (18:18)
[2021-10-27 21:42] VITALS: BP 96/69
[2021-10-28 05:00] VITALS: BP 108/65
[2021-10-28] MEDS: PIPERACILLIN-TAZOB 3.375GM 100 ML IV SCH ×3 (05:12→21:41)
[2021-10-28 06:00] LABS: Basophils # (auto) 0.1 10 ^3/uL (0-0.2); Basophils % (auto) 0.4 % (0.0-2.0); Eosinophils # (auto) 0.1 10 ^3/uL (0-0.8); Eosinophils % (auto) 0.7 % (0.0-7.0); Hemoglobin 14.7 g/dL (13.5-17.5); Lymphocytes # (auto) 0.7 10 ^3/uL (0.4-5.4); Lymphocytes % (auto) 5.3 % (10.0-50.0); Mean Corpuscular Hemoglobin 29.9 pg (28.0-32.0); Mean Corpuscular Hgb Conc. 34.3 g/dL (32.0-36.0); Mean Corpuscular Volume 87.2 fL (80.0-100.0); Monocytes # (auto) 1.7 10 ^3/uL (0-1.3); Monocytes % (auto) 12.8 % (0.0-12.0); Neutrophils # (auto) 10.7 10 ^3/uL (1.6-8.6); Neutrophils % (auto) 80.8 % (37.0-80.0); Red Blood Cells 4.93 10^6/uL (4.5-5.90); Red Cell Distribution Width 14.4 % (11.8-14.3); White Blood Cell 13.2 10^3/uL (4.4-10.8)
[2021-10-28 06:12] LABS: Albumin 2.4 g/dL (3.4-5.0); Calcium 8.4 mg/dL (8.5-10.1); Potassium 4.1 mmol/L (3.5-5.1)
[2021-10-28 06:17] LABS: Bilirubin, Total 1.2 mg/dL (0.2-1.0); Total Protein 6.4 g/dL (6.4-8.2)
[2021-10-28 09:00] VITALS: BP 103/66
[2021-10-28] MEDS: MORPHINE SULF 15mg ER tab PO SCH ×2 (10:52→21:42)
[2021-10-28] MEDS: metFORMIN HYDROCHLORIDE 500 MG TAB PO SCH ×4 (10:52→21:42)
[2021-10-28] MEDS: LISINOPRIL 5 MG TAB PO SCH (10:53)
[2021-10-28] MEDS: METOPROLOL TARTRATE 25 MG TAB PO SCH ×2 (10:53→21:43)
[2021-10-28] MEDS: ENOXAPARIN SOD 40 MG/0.4 ML SYRINGE SC SCH (10:54)
[2021-10-28] MEDS: PANTOPRAZOLE 40 MG TAB PO SCH (11:05)
[2021-10-28 13:00] VITALS: BP 125/82
[2021-10-28 16:54] VITALS: BP 104/65
[2021-10-28] MEDS: ZOLPIDEM TARTRATE 5 MG TAB PO SCH (17:47)
[2021-10-28 22:00] VITALS: BP 126/77
[2021-10-29] MEDS: PIPERACILLIN-TAZOB 3.375GM 100 ML IV SCH ×2 (04:43→11:54)
[2021-10-29 05:00] VITALS: BP 122/74
[2021-10-29] MEDS: ENOXAPARIN SOD 40 MG/0.4 ML SYRINGE SC SCH (08:58)
[2021-10-29] MEDS: PANTOPRAZOLE 40 MG TAB PO SCH (08:59)
[2021-10-29] MEDS: MORPHINE SULF 15mg ER tab PO SCH (08:59)
[2021-10-29] MEDS: metFORMIN HYDROCHLORIDE 500 MG TAB PO SCH (08:59)
[2021-10-29] MEDS: LISINOPRIL 5 MG TAB PO SCH (08:59)
[2021-10-29 09:00] VITALS: BP_SYST 124; BP_SYST 163; BP_DIAS 70; BP_DIAS 97
[2021-10-29] MEDS: METOPROLOL TARTRATE 25 MG TAB PO SCH (09:00)
[2021-10-29] MEDS ORDERED: MORP1CAP13 PO (15:18)
[2021-10-29 15:49] VITALS: BP 117/75
[2021-10-29] MEDS ORDERED: HYDR2TAB58 PO ×2 (16:19→17:11)
[2021-10-29] MEDS ORDERED: NALO4SPR2 (16:23)
== END 2021-10-29 17:47 | disposition home health service (06) | DRG 872 ==
LOC: ER 15:07 → OVERFLOW 10-26 00:31 → WEST WING 10-27 01:24
PROVIDERS: ADMIT Internal Medicine; ATTEND Internal Medicine
DX: A41.9 Sepsis, unspecified organism (principal); C18.9 Malignant neoplasm of colon, unspecified; C78.00 Secondary malignant neoplasm of unspecified lung; C78.7 Secondary malignant neoplasm of liver and intrahepatic bile duct; H91.3 Deaf nonspeaking, not elsewhere classified; I10 Essential (primary) hypertension; E11.65 Type 2 diabetes mellitus with hyperglycemia; R74.8 Abnormal levels of other serum enzymes; Z90.49 Acquired absence of other specified parts of digestive tract; Z20.822 Contact with and (suspected) exposure to COVID-19; J45.909 Unspecified asthma, uncomplicated; E78.5 Hyperlipidemia, unspecified; Z80.8 Family history of malignant neoplasm of other organs or systems; Z79.84 Long term (current) use of oral hypoglycemic drugs
CPT/HCPCS: 36415; 70470; 74176; 80048; 80053; 81001; 82150; 83690; 84484; 85025; 93005; 96365; 96372; 96375; G0378; J2543

== ENCOUNTER 2022-02-12 07:35 | Inpatient (IN) | payer MEDICARE, MEDICAID ==
[~2022-02-12] VITALS: Ht 180.3 cm; Wt 122.0 kg
[~2022-02-12 07:35] MED LIST changes: -HYDR-4902 PO; +HYDR2TAB58 PO; -LEVO500T31 PO; -LORA0.5T20 PO; +NALO4SPR2
[2022-02-12 08:19] LABS: Urine Blood 1+ /uL (Negative); Urine Specific Gravity 1.035 (1.001-1.035)
[2022-02-12 08:21] LABS: Basophils # (auto) 0 10 ^3/uL (0-0.2); Basophils % (auto) 0.3 % (0.0-2.0); Eosinophils # (auto) 0 10 ^3/uL (0-0.8); Eosinophils % (auto) 1.2 % (0.0-7.0); Hematocrit 49.7 % (41.0-53.0); Hemoglobin 16.5 g/dL (13.5-17.5); Lymphocytes # (auto) 0.4 10 ^3/uL (0.4-5.4); Lymphocytes % (auto) 14.3 % (10.0-50.0); Mean Corpuscular Hemoglobin 29.4 pg (28.0-32.0); Mean Corpuscular Hgb Conc. 33.2 g/dL (32.0-36.0); Mean Corpuscular Volume 88.4 fL (80.0-100.0); Monocytes # (auto) 0.1 10 ^3/uL (0-1.3); Monocytes % (auto) 5.4 % (0.0-12.0); Neutrophils % (auto) 78.8 % (37.0-80.0); Nucleated Red Blood Cells % 0.1 %; Red Blood Cells 5.62 10^6/uL (4.5-5.90); Red Cell Distribution Width 18.7 % (11.8-14.3); White Blood Cell 2.5 10^3/uL (4.4-10.8)
[2022-02-12 08:32] LABS: Albumin 2.7 g/dL (3.4-5.0); Calcium 8.7 mg/dL (8.5-10.1); Potassium 4.1 mmol/L (3.5-5.1)
[2022-02-12 08:35] LABS: BUN/Creatinine Ratio 32.2; Bilirubin, Total 1.2 mg/dL (0.2-1.0); Total Protein 6.4 g/dL (6.4-8.2)
[2022-02-12] MEDS ORDERED: SODIUM CHLORIDE 0.9% 1,000 ML IV ONE (10:00)
[2022-02-12] MEDS ORDERED: IOHEXOL 300 MG/ML 100ML BOTTLE IJ ONE (10:16)
[2022-02-12] MEDS ORDERED: HYDROmorphone HCL 2 MG/ML VL/or syr IV ONE (15:15)
[2022-02-12] MEDS ORDERED: ONDANSETRON HCL 4 MG/2 ML VIAL IV ONE (15:15)
[2022-02-12] MEDS: SODIUM CHLORIDE 0.9% 1,000 ML IV SCH (17:30)
[2022-02-12] MEDS ORDERED: MORPHINE SULFATE INJ 2 MG/ml SYRG IV PRN (17:30)
[2022-02-12] MEDS ORDERED: NITROGLYCERIN 0.4 MG SL TAB SL PRN (17:30)
[2022-02-12] MEDS ORDERED: CLINIMIX PER PHARMACY 0 ML IV SCH (18:45)
[2022-02-12] MEDS: PANTOPRAZOLE 40 MG/10 ML VIAL INJ IV SCH (19:04)
[2022-02-12] MEDS: AMINO ACID INFUSION IN D10W 1,000 ML IV NR (20:00)
[2022-02-13] MEDS ORDERED: DEXTROSE (50%) 50ML SYRG IV SCH
[2022-02-13] MEDS: SODIUM CHLORIDE 0.9% 1,000 ML IV SCH ×3 (01:30→18:36)
[2022-02-13 03:42] LABS: Basophils # (auto) 0 10 ^3/uL (0-0.2); Basophils % (auto) 0.3 % (0.0-2.0); Eosinophils # (auto) 0 10 ^3/uL (0-0.8); Eosinophils % (auto) 1.8 % (0.0-7.0); Hematocrit 45.8 % (41.0-53.0); Hemoglobin 15.3 g/dL (13.5-17.5); Lymphocytes # (auto) 0.4 10 ^3/uL (0.4-5.4); Lymphocytes % (auto) 21.4 % (10.0-50.0); Mean Corpuscular Hemoglobin 29.4 pg (28.0-32.0); Mean Corpuscular Hgb Conc. 33.4 g/dL (32.0-36.0); Mean Corpuscular Volume 87.9 fL (80.0-100.0); Monocytes # (auto) 0.2 10 ^3/uL (0-1.3); Monocytes % (auto) 8.1 % (0.0-12.0); Neutrophils # (auto) 1.3 10 ^3/uL (1.6-8.6); Neutrophils % (auto) 68.4 % (37.0-80.0); Nucleated Red Blood Cells % 0.6 %; Red Blood Cells 5.21 10^6/uL (4.5-5.90); Red Cell Distribution Width 18.8 % (11.8-14.3)
[2022-02-13 03:44] LABS: White Blood Cell 1.9 10^3/uL (4.4-10.8)
[2022-02-13 03:56] LABS: Albumin 2.5 g/dL (3.4-5.0); Calcium 8.7 mg/dL (8.5-10.1); Magnesium 2.5 mg/dL (1.6-2.6); Potassium 4.1 mmol/L (3.5-5.1)
[2022-02-13 04:00] LABS: BUN/Creatinine Ratio 39.3; Bilirubin, Total 1.4 mg/dL (0.2-1.0); Phosphorus 3.6 mg/dL (2.5-4.90); Total Protein 5.9 g/dL (6.4-8.2)
[2022-02-13] MEDS: ACCU-CHEK COMFORT CURVE STRIP VI SCH ×5 (06:00→23:24)
[2022-02-13] MEDS: InsuLIN REG 1unit/0.01ml Soln (100units/ml) SC SCH ×5 (06:00→23:23)
[2022-02-13] MEDS: MORPHINE SULFATE 4 MG/ML SYR/VIAL IV PRN ×2 (08:43→18:49)
[2022-02-13] MEDS: PANTOPRAZOLE 40 MG/10 ML VIAL INJ IV SCH (09:51)
[2022-02-13 15:15] VITALS: BP 152/90
[2022-02-13] MEDS ORDERED: OXYC325T14 PO (17:14)
[2022-02-13] MEDS ORDERED: ESZO1TAB15 PO (17:14)
[2022-02-13] MEDS ORDERED: DULO1CAP5 PO (17:14)
[2022-02-13] MEDS: AMINO ACID INFUSION IN D10W 1,000 ML IV NR (20:24)
[2022-02-13 22:00] VITALS: BP 139/93
[2022-02-14] MEDS: MORPHINE SULFATE 4 MG/ML SYR/VIAL IV PRN ×5 (02:56→21:17)
[2022-02-14 05:00] VITALS: BP 158/91
[2022-02-14] MEDS: InsuLIN REG 1unit/0.01ml Soln (100units/ml) SC SCH ×3 (06:00→17:15)
[2022-02-14 06:39] LABS: Albumin 2.2 g/dL (3.4-5.0); BUN/Creatinine Ratio 28.6; Magnesium 2.1 mg/dL (1.6-2.6); Phosphorus 2.6 mg/dL (2.5-4.90); Potassium 3.4 mmol/L (3.5-5.1)
[2022-02-14 06:42] LABS: Total Protein 5.6 g/dL (6.4-8.2)
[2022-02-14] MEDS: SODIUM CHLORIDE 0.9% 1,000 ML IV SCH ×3 (08:37→19:00)
[2022-02-14 08:47] VITALS: BP 116/84
[2022-02-14] MEDS: PANTOPRAZOLE 40 MG/10 ML VIAL INJ IV SCH (10:28)
[2022-02-14] MEDS: ENOXAPARIN SOD 40 MG/0.4 ML SYRINGE SC SCH (10:28)
[2022-02-14] MEDS: ACCU-CHEK COMFORT CURVE STRIP VI SCH ×3 (12:38→17:14)
[2022-02-14 13:00] VITALS: BP 122/91
[2022-02-14 17:00] VITALS: BP 141/91
[2022-02-14] MEDS: AMINO ACID INFUSION IN D10W 1,000 ML IV NR (20:48)
[2022-02-15 01:22] VITALS: BP 129/91
[2022-02-15] MEDS: SODIUM CHLORIDE 0.9% 1,000 ML IV SCH ×3 (01:30→19:00)
[2022-02-15] MEDS: MORPHINE SULFATE 4 MG/ML SYR/VIAL IV PRN ×5 (02:28→22:30)
[2022-02-15] MEDS: InsuLIN REG 1unit/0.01ml Soln (100units/ml) SC SCH ×4 (06:00→17:45)
[2022-02-15 06:16] LABS: Albumin 2.2 g/dL (3.4-5.0); BUN/Creatinine Ratio 20.5; Calcium 7.9 mg/dL (8.5-10.1); Magnesium 1.9 mg/dL (1.6-2.6); Potassium 3.6 mmol/L (3.5-5.1)
[2022-02-15 06:18] LABS: Bilirubin, Total 0.8 mg/dL (0.2-1.0); Phosphorus 3.1 mg/dL (2.5-4.90); Total Protein 5.1 g/dL (6.4-8.2)
[2022-02-15] MEDS: ACCU-CHEK COMFORT CURVE STRIP VI SCH ×4 (06:24→17:45)
[2022-02-15 06:28] VITALS: BP 132/87
[2022-02-15 06:35] LABS: Basophils # (auto) 0 10 ^3/uL (0-0.2); Basophils % (auto) 0.2 % (0.0-2.0); Eosinophils # (auto) 0 10 ^3/uL (0-0.8); Eosinophils % (auto) 1.4 % (0.0-7.0); Hematocrit 41.9 % (41.0-53.0); Hemoglobin 13.9 g/dL (13.5-17.5); Lymphocytes # (auto) 0.6 10 ^3/uL (0.4-5.4); Lymphocytes % (auto) 18.9 % (10.0-50.0); Mean Corpuscular Hemoglobin 29.5 pg (28.0-32.0); Mean Corpuscular Hgb Conc. 33.2 g/dL (32.0-36.0); Mean Corpuscular Volume 88.7 fL (80.0-100.0); Monocytes # (auto) 0.2 10 ^3/uL (0-1.3); Monocytes % (auto) 7.2 % (0.0-12.0); Neutrophils # (auto) 2.3 10 ^3/uL (1.6-8.6); Neutrophils % (auto) 72.3 % (37.0-80.0); Nucleated Red Blood Cells % 0.3 %; Red Blood Cells 4.72 10^6/uL (4.5-5.90); Red Cell Distribution Width 18.5 % (11.8-14.3); White Blood Cell 3.1 10^3/uL (4.4-10.8)
[2022-02-15 09:00] VITALS: BP 122/83
[2022-02-15] MEDS: PANTOPRAZOLE 40 MG/10 ML VIAL INJ IV SCH (10:01)
[2022-02-15] MEDS: ENOXAPARIN SOD 40 MG/0.4 ML SYRINGE SC SCH (10:02)
[2022-02-15] MEDS ORDERED: GASTROGRAFIN 120 ML SOL ONE (10:13)
[2022-02-15] MEDS: AMINO ACID INFUSION IN D10W 1,000 ML IV NR ×3 (11:48→22:29)
[2022-02-15 12:39] VITALS: BP 143/92
[2022-02-15 17:00] VITALS: BP 136/100
[2022-02-15 21:37] VITALS: BP 139/99
[2022-02-16] MEDS: ACCU-CHEK COMFORT CURVE STRIP VI SCH ×5 (00:34→23:57)
[2022-02-16] MEDS: InsuLIN REG 1unit/0.01ml Soln (100units/ml) SC SCH ×5 (00:34→23:57)
[2022-02-16] MEDS: SODIUM CHLORIDE 0.9% 1,000 ML IV SCH ×3 (03:48→17:30)
[2022-02-16] MEDS: MORPHINE SULFATE 4 MG/ML SYR/VIAL IV PRN ×4 (03:56→20:20)
[2022-02-16] MEDS: ONDANSETRON HCL 4 MG/2 ML VIAL IV PRN (03:56)
[2022-02-16 05:35] VITALS: BP 121/91
[2022-02-16 06:30] LABS: Potassium 3.1 mmol/L (3.5-5.1)
[2022-02-16 06:44] LABS: Albumin 2.2 g/dL (3.4-5.0); BUN/Creatinine Ratio 21.2; Bilirubin, Total 0.8 mg/dL (0.2-1.0); Calcium 8.3 mg/dL (8.5-10.1); Magnesium 1.9 mg/dL (1.6-2.6); Phosphorus 2.9 mg/dL (2.5-4.90); Total Protein 5.8 g/dL (6.4-8.2)
[2022-02-16 09:00] VITALS: BP 140/94
[2022-02-16] MEDS: PANTOPRAZOLE 40 MG/10 ML VIAL INJ IV SCH (09:28)
[2022-02-16] MEDS: ENOXAPARIN SOD 40 MG/0.4 ML SYRINGE SC SCH (09:29)
[2022-02-16 13:00] VITALS: BP 144/92
[2022-02-16] MEDS ORDERED: POTASSIUM PHOSPHATE 44 MEQ in D5W 5% 250 ML IV ONE (14:00)
[2022-02-16 16:39] VITALS: BP 140/98
[2022-02-16] MEDS: AMINO ACID INFUSION IN D10W 1,000 ML IV NR (21:42)
[2022-02-16 22:00] VITALS: BP 145/101
[2022-02-17] MEDS: MORPHINE SULFATE 4 MG/ML SYR/VIAL IV PRN ×4 (01:13→21:31)
[2022-02-17] MEDS: ONDANSETRON HCL 4 MG/2 ML VIAL IV PRN (01:30)
[2022-02-17] MEDS: SODIUM CHLORIDE 0.9% 1,000 ML IV SCH ×3 (04:15→17:30)
[2022-02-17 05:00] VITALS: BP 149/103
[2022-02-17] MEDS: ACCU-CHEK COMFORT CURVE STRIP VI SCH ×4 (05:44→23:38)
[2022-02-17] MEDS: InsuLIN REG 1unit/0.01ml Soln (100units/ml) SC SCH ×4 (05:44→23:38)
[2022-02-17 06:55] LABS: Potassium 3.2 mmol/L (3.5-5.1)
[2022-02-17 07:01] LABS: Albumin 2.2 g/dL (3.4-5.0); BUN/Creatinine Ratio 28.6; Magnesium 1.5 mg/dL (1.6-2.6); Phosphorus 3.5 mg/dL (2.5-4.90); Total Protein 5.6 g/dL (6.4-8.2)
[2022-02-17 08:30] VITALS: BP 127/93
[2022-02-17] MEDS: PANTOPRAZOLE 40 MG/10 ML VIAL INJ IV SCH (10:01)
[2022-02-17 12:30] VITALS: BP 130/97
[2022-02-17] MEDS: ENOXAPARIN SOD 40 MG/0.4 ML SYRINGE SC SCH (12:45)
[2022-02-17] MEDS ORDERED: GOLYTELY 4L KIT PO ONE (13:45)
[2022-02-17] MEDS ORDERED: POTASSIUM EFFERVESENT TAB 25 MEQ PO ONE (13:45)
[2022-02-17] MEDS: MAGNESIUM SULFATE 1GM/100ML 100 ML IV SCH ×2 (15:05→16:40)
[2022-02-17 16:39] VITALS: BP 120/89
[2022-02-17] MEDS: AMINO ACID INFUSION IN D10W 1,000 ML IV NR (21:32)
[2022-02-17 22:00] VITALS: BP 156/99
[2022-02-18] MEDS: SODIUM CHLORIDE 0.9% 1,000 ML IV SCH ×4 (01:30→20:01)
[2022-02-18] MEDS: MORPHINE SULFATE 4 MG/ML SYR/VIAL IV PRN ×4 (03:43→19:57)
[2022-02-18 04:42] VITALS: BP 143/97
[2022-02-18] MEDS: InsuLIN REG 1unit/0.01ml Soln (100units/ml) SC SCH ×3 (05:57→17:43)
[2022-02-18] MEDS: ACCU-CHEK COMFORT CURVE STRIP VI SCH ×3 (05:57→17:42)
[2022-02-18 06:48] LABS: Albumin 1.9 g/dL (3.4-5.0); BUN/Creatinine Ratio 20.4; Calcium 7.4 mg/dL (8.5-10.1); Phosphorus 2.5 mg/dL (2.5-4.90); Potassium 3.5 mmol/L (3.5-5.1)
[2022-02-18 09:00] VITALS: BP 122/85
[2022-02-18] MEDS: PANTOPRAZOLE 40 MG/10 ML VIAL INJ IV SCH (09:16)
[2022-02-18] MEDS: ENOXAPARIN SOD 40 MG/0.4 ML SYRINGE SC SCH (09:17)
[2022-02-18 13:00] VITALS: BP 123/84
[2022-02-18 16:30] VITALS: BP 118/82
[2022-02-18] MEDS: AMINO ACID INFUSION IN D10W 1,000 ML IV NR (20:43)
[2022-02-18 22:01] VITALS: BP 131/79
[2022-02-19] MEDS: ACCU-CHEK COMFORT CURVE STRIP VI SCH ×4 (00:20→18:30)
[2022-02-19] MEDS: MORPHINE SULFATE 4 MG/ML SYR/VIAL IV PRN ×2 (01:23→09:40)
[2022-02-19 04:45] VITALS: BP 123/80
[2022-02-19] MEDS: SODIUM CHLORIDE 0.9% 1,000 ML IV SCH ×2 (05:02→15:21)
[2022-02-19] MEDS: InsuLIN REG 1unit/0.01ml Soln (100units/ml) SC SCH ×4 (05:49→18:30)
[2022-02-19 06:55] LABS: Calcium 7.7 mg/dL (8.5-10.1); Magnesium 1.9 mg/dL (1.6-2.6); Potassium 3.3 mmol/L (3.5-5.1)
[2022-02-19 06:57] LABS: BUN/Creatinine Ratio 23.1; Phosphorus 2.5 mg/dL (2.5-4.90)
[2022-02-19 08:10] VITALS: BP 138/88
[2022-02-19 09:00] VITALS: BP 138/88
[2022-02-19] MEDS: POTASSIUM CHL 20MEQ/100ML 100 ML IV SCH ×2 (09:38→12:03)
[2022-02-19] MEDS: ENOXAPARIN SOD 40 MG/0.4 ML SYRINGE SC SCH (09:39)
[2022-02-19] MEDS: PANTOPRAZOLE 40 MG/10 ML VIAL INJ IV SCH (09:39)
[2022-02-19 13:00] VITALS: BP 120/84
[2022-02-19] MEDS: HYDROmorphone HCL 2 MG/ML VL/or syr IV PRN ×2 (15:07→21:02)
[2022-02-19 17:00] VITALS: BP 130/87
[2022-02-19 22:00] VITALS: BP 140/91
[2022-02-19] MEDS: AMINO ACID INFUSION IN D10W 1,000 ML IV NR (22:12)
[2022-02-20] MEDS: ACCU-CHEK COMFORT CURVE STRIP VI SCH ×5 (00:35→23:26)
[2022-02-20] MEDS: SODIUM CHLORIDE 0.9% 1,000 ML IV SCH ×3 (01:30→17:01)
[2022-02-20] MEDS: HYDROmorphone HCL 2 MG/ML VL/or syr IV PRN ×6 (01:46→20:57)
[2022-02-20 05:00] VITALS: BP 131/86
[2022-02-20] MEDS: InsuLIN REG 1unit/0.01ml Soln (100units/ml) SC SCH ×5 (05:33→23:26)
[2022-02-20 05:47] LABS: Albumin 1.9 g/dL (3.4-5.0); BUN/Creatinine Ratio 21.1; Calcium 7.5 mg/dL (8.5-10.1); Magnesium 1.6 mg/dL (1.6-2.6); Potassium 3.2 mmol/L (3.5-5.1)
[2022-02-20 05:50] LABS: Bilirubin, Total 0.8 mg/dL (0.2-1.0); Phosphorus 2.7 mg/dL (2.5-4.90)
[2022-02-20] MEDS: PANTOPRAZOLE 40 MG/10 ML VIAL INJ IV SCH (08:30)
[2022-02-20] MEDS: ENOXAPARIN SOD 40 MG/0.4 ML SYRINGE SC SCH (08:31)
[2022-02-20 09:00] VITALS: BP 143/100
[2022-02-20 12:53] VITALS: BP_SYST 111; BP_SYST 137; BP_DIAS 62; BP_DIAS 95
[2022-02-20] MEDS ORDERED: POTASSIUM EFFERVESENT TAB 25 MEQ PO ONE (13:15)
[2022-02-20] MEDS ORDERED: POTASSIUM PHOSPHATE 22 MEQ in SODIUM CHL 0.9% 100 ML IV ONE (13:15)
[2022-02-20] MEDS ORDERED: POTASSIUM CHL 20MEQ/100ML 100 ML IV ONE (13:15)
[2022-02-20] MEDS: MAGNESIUM SULFATE 1GM/100ML 100 ML IV SCH ×3 (13:49→16:06)
[2022-02-20] MEDS: LACTULOSE 20Gm/30ML SOLN PO SCH ×3 (13:49→22:00)
[2022-02-20] MEDS ORDERED: POTASSIUM PHOSPHATE 44 MEQ in D5W 5% 250 ML IV ONE (15:30)
[2022-02-20] MEDS ORDERED: AMINO ACID INFUSION IN D10W 1,000 ML IV NR (20:00)
[2022-02-21] MEDS: HYDROmorphone HCL 2 MG/ML VL/or syr IV PRN ×6 (00:24→22:18)
[2022-02-21] MEDS: LACTULOSE 20Gm/30ML SOLN PO SCH ×3 (02:00→08:20)
[2022-02-21] MEDS: SODIUM CHLORIDE 0.9% 1,000 ML IV SCH ×3 (03:02→17:45)
[2022-02-21] MEDS: ONDANSETRON HCL 4 MG/2 ML VIAL IV PRN ×2 (03:42→08:32)
[2022-02-21 05:00] VITALS: BP 129/91
[2022-02-21] MEDS: ACCU-CHEK COMFORT CURVE STRIP VI SCH ×3 (05:18→17:07)
[2022-02-21] MEDS: InsuLIN REG 1unit/0.01ml Soln (100units/ml) SC SCH ×2 (05:19→11:05)
[2022-02-21 07:16] LABS: Hematocrit 44.1 % (41.0-53.0); Hemoglobin 14.6 g/dL (13.5-17.5); Mean Corpuscular Hemoglobin 29.6 pg (28.0-32.0); Mean Corpuscular Volume 89.5 fL (80.0-100.0); Red Blood Cells 4.93 10^6/uL (4.5-5.90); Red Cell Distribution Width 19.1 % (11.8-14.3); White Blood Cell 4.1 10^3/uL (4.4-10.8)
[2022-02-21 07:26] LABS: Potassium 3.9 mmol/L (3.5-5.1)
[2022-02-21 07:55] LABS: Basophils % (manual) 0 (0.0-2.0); Blast Cells 0; Metamyelocytes % 0; Myelocytes % 0; Promyelocytes % 0; Reactive Lymphocytes 0
[2022-02-21 07:59] LABS: Albumin 1.9 g/dL (3.4-5.0); Bilirubin, Total 0.9 mg/dL (0.2-1.0); Calcium 8.1 mg/dL (8.5-10.1); Magnesium 2.5 mg/dL (1.6-2.6); Phosphorus 3.6 mg/dL (2.5-4.90); Total Protein 5.3 g/dL (6.4-8.2)
[2022-02-21 08:16] VITALS: BP 147/96
[2022-02-21] MEDS: ENOXAPARIN SOD 40 MG/0.4 ML SYRINGE SC SCH (08:20)
[2022-02-21] MEDS: PANTOPRAZOLE 40 MG/10 ML VIAL INJ IV SCH (08:20)
[2022-02-21 09:48] LABS: Band Neutrophils % (manual) 1; Eosinophils % (manual) 2 (0-7); Lymphocytes % (manual) 12 (10.0-50.0)
[2022-02-21 09:49] LABS: Monocytes % (manual) 16 (0-12)
[2022-02-21] MEDS ORDERED: GOLYTELY 4L KIT PO ONE (13:00)
[2022-02-21 13:11] VITALS: BP 126/87
[2022-02-21 17:00] VITALS: BP 119/82
[2022-02-21 22:00] VITALS: BP 125/84
[2022-02-22] MEDS: SODIUM CHLORIDE 0.9% 1,000 ML IV SCH ×4 (01:45→18:29)
[2022-02-22] MEDS: HYDROmorphone HCL 2 MG/ML VL/or syr IV PRN ×6 (01:59→23:41)
[2022-02-22 05:00] VITALS: BP 109/76
[2022-02-22 06:07] LABS: Hematocrit 40.7 % (41.0-53.0); Hemoglobin 13.9 g/dL (13.5-17.5); Mean Corpuscular Hemoglobin 30.6 pg (28.0-32.0); Mean Corpuscular Hgb Conc. 34.2 g/dL (32.0-36.0); Mean Corpuscular Volume 89.4 fL (80.0-100.0); Red Blood Cells 4.56 10^6/uL (4.5-5.90); Red Cell Distribution Width 19.7 % (11.8-14.3); White Blood Cell 3.5 10^3/uL (4.4-10.8)
[2022-02-22 06:20] LABS: Basophils % (manual) 0 (0.0-2.0); Blast Cells 0; Metamyelocytes % 0; Myelocytes % 0; Promyelocytes % 0; Reactive Lymphocytes 0
[2022-02-22 06:28] LABS: Potassium 3.7 mmol/L (3.5-5.1)
[2022-02-22 06:39] LABS: Albumin 1.8 g/dL (3.4-5.0); Calcium 7.8 mg/dL (8.5-10.1); Magnesium 1.9 mg/dL (1.6-2.6); Phosphorus 3.4 mg/dL (2.5-4.90); Total Protein 5.2 g/dL (6.4-8.2)
[2022-02-22 08:00] VITALS: BP 135/89
[2022-02-22] MEDS: PANTOPRAZOLE 40 MG/10 ML VIAL INJ IV SCH (08:45)
[2022-02-22] MEDS: ENOXAPARIN SOD 40 MG/0.4 ML SYRINGE SC SCH (08:46)
[2022-02-22 09:00] VITALS: BP 135/89
[2022-02-22 09:48] LABS: Band Neutrophils % (manual) 17; Eosinophils % (manual) 3 (0-7); Lymphocytes % (manual) 17 (10.0-50.0); Monocytes % (manual) 17 (0-12)
[2022-02-22 13:00] VITALS: BP 114/75
[2022-02-22 17:00] VITALS: BP 120/80
[2022-02-22 22:12] VITALS: BP 125/80
[2022-02-23] MEDS: HYDROmorphone HCL 2 MG/ML VL/or syr IV PRN ×6 (02:46→23:12)
[2022-02-23 04:58] VITALS: BP 129/84
[2022-02-23] MEDS: ENOXAPARIN SOD 40 MG/0.4 ML SYRINGE SC SCH (08:31)
[2022-02-23] MEDS: PANTOPRAZOLE 40 MG/10 ML VIAL INJ IV SCH (08:31)
[2022-02-23 08:35] VITALS: BP 111/87
[2022-02-23] MEDS: SODIUM CHLORIDE 0.9% 1,000 ML IV SCH ×2 (09:30→17:30)
[2022-02-23] MEDS ORDERED: HYDR2TAB58 PO ×3 (10:39→12:13)
[2022-02-23] MEDS ORDERED: ALPR0.25 PO ×2 (10:39→11:26)
[2022-02-23] MEDS ORDERED: NALO4SPR2 ×2 (10:39→11:26)
[2022-02-23] MEDS ORDERED: SENN-58 PO (10:41)
[2022-02-23 12:44] VITALS: BP 137/94
[2022-02-23 16:59] VITALS: BP 127/80
[2022-02-23 22:00] VITALS: BP 128/86
[2022-02-24] MEDS: HYDROmorphone HCL 2 MG/ML VL/or syr IV PRN ×5 (04:30→19:42)
[2022-02-24 05:00] VITALS: BP 127/91
[2022-02-24] MEDS: SODIUM CHLORIDE 0.9% 1,000 ML IV SCH ×3 (05:35→17:37)
[2022-02-24 08:20] VITALS: BP 137/104
[2022-02-24] MEDS: ENOXAPARIN SOD 40 MG/0.4 ML SYRINGE SC SCH (09:43)
[2022-02-24] MEDS: PANTOPRAZOLE 40 MG/10 ML VIAL INJ IV SCH (09:43)
[2022-02-24 12:15] VITALS: BP 145/90
[2022-02-24 16:15] VITALS: BP 137/86
[2022-02-24 22:39] VITALS: BP 121/86
[2022-02-25] MEDS: HYDROmorphone HCL 2 MG/ML VL/or syr IV PRN ×4 (00:45→13:07)
[2022-02-25] MEDS: SODIUM CHLORIDE 0.9% 1,000 ML IV SCH (05:10)
[2022-02-25 09:00] VITALS: BP 125/83
[2022-02-25] MEDS: PANTOPRAZOLE 40 MG/10 ML VIAL INJ IV SCH (10:00)
[2022-02-25] MEDS: ENOXAPARIN SOD 40 MG/0.4 ML SYRINGE SC SCH (10:00)
[2022-02-25 12:27] VITALS: BP 118/63
[2022-02-25 13:13] VITALS: BP 131/82
[2022-02-25 13:37] VITALS: BP 109/78
== END 2022-02-25 15:46 | disposition home or self-care (01) | DRG 948 ==
LOC: ER 07:35 → TELE 17:19 → TELE-WESTW 02-13 15:14
PROVIDERS: ADMIT Internal Medicine; ATTEND Internal Medicine
PROC: 0D9670Z Drainage of Stomach with Drainage Device, Via Natural or Artificial Opening (ICD-10-PCS; principal; 2022-02-12)
DX: G89.3 Neoplasm related pain (acute) (chronic) (principal); K56.609 Unspecified intestinal obstruction, unspecified as to partial versus complete obstruction; C18.9 Malignant neoplasm of colon, unspecified; C78.00 Secondary malignant neoplasm of unspecified lung; C78.7 Secondary malignant neoplasm of liver and intrahepatic bile duct; R18.8 Other ascites; E88.09 Other disorders of plasma-protein metabolism, not elsewhere classified; Z20.822 Contact with and (suspected) exposure to COVID-19; E11.65 Type 2 diabetes mellitus with hyperglycemia; E66.9 Obesity, unspecified; E78.5 Hyperlipidemia, unspecified; K59.03 Drug induced constipation; H91.3 Deaf nonspeaking, not elsewhere classified; E87.6 Hypokalemia; I10 Essential (primary) hypertension; J45.909 Unspecified asthma, uncomplicated; Z80.8 Family history of malignant neoplasm of other organs or systems; Z68.32 Body mass index [BMI] 32.0-32.9, adult
CPT/HCPCS: 36415; 73560; 74018; 74177; 74250; 80053; 80069; 81003; 82962; 83690; 83735; 84100; 84478; 85007; 85025; 85027; 87426; 93005; 96361; 96374; 96375; C9113; G0378; J1815; J2405; J3480; J7060

== ENCOUNTER 2022-03-08 16:52 | Inpatient (IN) | payer MEDICARE, MEDICAID ==
[~2022-03-08] VITALS: Ht 185.4 cm; Wt 101.1 kg
[~2022-03-08 16:52] MED LIST changes: -ALPR0.25 PO; +DULO1CAP5 PO; +ESZO1TAB15 PO; -HYDR2TAB58 PO
[2022-03-08] MEDS ORDERED: MORPHINE SULFATE 4 MG/ML SYR/VIAL IV ONE (22:15)
[2022-03-08] MEDS ORDERED: ONDANSETRON HCL 4 MG/2 ML VIAL IV ONE (22:15)
[2022-03-08] MEDS ORDERED: IOHEXOL 350 MG/ML 100ML IJ ONE (22:28)
[2022-03-08 23:01] LABS: Basophils # (auto) 0 10 ^3/uL (0-0.2); Basophils % (auto) 0.5 % (0.0-2.0); Eosinophils # (auto) 0 10 ^3/uL (0-0.8); Eosinophils % (auto) 0.3 % (0.0-7.0); Hematocrit 49.4 % (41.0-53.0); Hemoglobin 16.9 g/dL (13.5-17.5); Lymphocytes # (auto) 0.5 10 ^3/uL (0.4-5.4); Lymphocytes % (auto) 6.7 % (10.0-50.0); Mean Corpuscular Hgb Conc. 34.2 g/dL (32.0-36.0); Mean Corpuscular Volume 90.7 fL (80.0-100.0); Monocytes % (auto) 13.3 % (0.0-12.0); Neutrophils # (auto) 5.7 10 ^3/uL (1.6-8.6); Neutrophils % (auto) 79.2 % (37.0-80.0); Nucleated Red Blood Cells % 0.2 %; Red Blood Cells 5.44 10^6/uL (4.5-5.90); Red Cell Distribution Width 19.2 % (11.8-14.3); White Blood Cell 7.1 10^3/uL (4.4-10.8)
[2022-03-08 23:19] LABS: Albumin 2.4 g/dL (3.4-5.0); BUN/Creatinine Ratio 14.7; Calcium 8.8 mg/dL (8.5-10.1); INR 1.3 (0.9-1.15); Magnesium 2.3 mg/dL (1.6-2.6); Partial Thromboplastin Time 33.4 sec (24.6-33.4)
[2022-03-08 23:24] LABS: Bilirubin, Total 1.1 mg/dL (0.2-1.0); Lactic Acid w/Reflex 2.1 mmol/L (0.4-2.0); Total Protein 6.4 g/dL (6.4-8.2)
[2022-03-09] MEDS ORDERED: ONDANSETRON HCL 4 MG/2 ML VIAL IV ONE ×2 (04:30→05:00)
[2022-03-09] MEDS ORDERED: MORPHINE SULFATE 4 MG/ML SYR/VIAL IV ONE ×2 (04:30→05:00)
[2022-03-09] MEDS ORDERED: LACTATED RINGER'S 1,000 ML IV ONE (05:00)
[2022-03-09] MEDS ORDERED: ONDANSETRON HCL 4 MG/2 ML VIAL IV PRN (07:45)
[2022-03-09] MEDS ORDERED: hydrALAZINE HCL 20 MG/ML VL IV PRN (07:45)
[2022-03-09] MEDS ORDERED: MORPHINE SULFATE INJ 2 MG/ml SYRG IV PRN (07:45)
[2022-03-09] MEDS ORDERED: NITROGLYCERIN 0.4 MG SL TAB SL PRN (07:45)
[2022-03-09] MEDS ORDERED: ALPRAZolam 0.5 MG TAB PO PRN (07:45)
[2022-03-09] MEDS: MORPHINE SULFATE 4 MG/ML SYR/VIAL IV PRN ×2 (09:13→23:59)
[2022-03-09] MEDS: ONDANSETRON HCL 4 MG/2 ML VIAL IV PRN ×2 (09:13→22:41)
[2022-03-09] MEDS: PANTOPRAZOLE 40 MG TAB PO SCH (09:50)
[2022-03-09] MEDS: ENOXAPARIN SOD 40 MG/0.4 ML SYRINGE SC SCH (09:50)
[2022-03-09] MEDS: DOCUSATE SOD 100 MG CAP PO SCH ×2 (09:50→21:55)
[2022-03-09] MEDS: LACTULOSE 20Gm/30ML SOLN PO SCH (09:50)
[2022-03-09] MEDS: MORPHINE SULF 30 mg ER tab PO SCH ×2 (09:57→21:55)
[2022-03-10 06:28] LABS: Basophils # (auto) 0 10 ^3/uL (0-0.2); Basophils % (auto) 0.6 % (0.0-2.0); Eosinophils # (auto) 0.1 10 ^3/uL (0-0.8); Hematocrit 42.8 % (41.0-53.0); Hemoglobin 14.7 g/dL (13.5-17.5); Lymphocytes # (auto) 0.6 10 ^3/uL (0.4-5.4); Lymphocytes % (auto) 10.3 % (10.0-50.0); Mean Corpuscular Hemoglobin 31.1 pg (28.0-32.0); Mean Corpuscular Hgb Conc. 34.3 g/dL (32.0-36.0); Mean Corpuscular Volume 90.7 fL (80.0-100.0); Monocytes # (auto) 0.9 10 ^3/uL (0-1.3); Monocytes % (auto) 15.3 % (0.0-12.0); Neutrophils # (auto) 4.1 10 ^3/uL (1.6-8.6); Neutrophils % (auto) 72.8 % (37.0-80.0); Nucleated Red Blood Cells % 0.5 %; Red Blood Cells 4.72 10^6/uL (4.5-5.90); Red Cell Distribution Width 18.8 % (11.8-14.3); White Blood Cell 5.6 10^3/uL (4.4-10.8)
[2022-03-10 06:55] LABS: Potassium 4.3 mmol/L (3.5-5.1)
[2022-03-10 07:01] LABS: Albumin 2.1 g/dL (3.4-5.0); BUN/Creatinine Ratio 26.4; Calcium 8.3 mg/dL (8.5-10.1); Total Protein 5.4 g/dL (6.4-8.2)
[2022-03-10] MEDS: ONDANSETRON HCL 4 MG/2 ML VIAL IV PRN ×2 (09:01→21:03)
[2022-03-10] MEDS: MORPHINE SULFATE 4 MG/ML SYR/VIAL IV PRN ×2 (09:01→21:04)
[2022-03-10] MEDS: ENOXAPARIN SOD 40 MG/0.4 ML SYRINGE SC SCH (09:59)
[2022-03-10] MEDS: PANTOPRAZOLE 40 MG TAB PO SCH (11:27)
[2022-03-10] MEDS: LACTULOSE 20Gm/30ML SOLN PO SCH (11:27)
[2022-03-10] MEDS: DOCUSATE SOD 100 MG CAP PO SCH ×2 (11:27→21:59)
[2022-03-10] MEDS: MORPHINE SULF 30 mg ER tab PO SCH ×2 (11:27→21:59)
[2022-03-10 22:54] VITALS: BP 141/87
[2022-03-10] MEDS: TEMAZEPAM 15 MG CAP PO PRN (23:53)
[2022-03-11 04:40] VITALS: BP 108/73
[2022-03-11] MEDS: MORPHINE SULFATE 4 MG/ML SYR/VIAL IV PRN ×2 (05:32→14:18)
[2022-03-11 09:00] VITALS: BP 114/76
[2022-03-11] MEDS: LACTULOSE 20Gm/30ML SOLN PO SCH (09:34)
[2022-03-11] MEDS: ENOXAPARIN SOD 40 MG/0.4 ML SYRINGE SC SCH (09:35)
[2022-03-11] MEDS: MORPHINE SULF 30 mg ER tab PO SCH ×3 (09:35→21:55)
[2022-03-11] MEDS: PANTOPRAZOLE 40 MG TAB PO SCH (09:35)
[2022-03-11] MEDS: DOCUSATE SOD 100 MG CAP PO SCH ×2 (09:35→21:54)
[2022-03-11 13:00] VITALS: BP 126/85
[2022-03-11 17:00] VITALS: BP 128/87
[2022-03-11] MEDS: Ensure HIGH Protein Chocolate 8oz Bottle PO SCH (18:00)
[2022-03-11 22:00] VITALS: BP 119/89
[2022-03-11] MEDS ORDERED: MORPHINE SULF 15mg ER tab PO SCH (22:00)
[2022-03-11] MEDS: MEGESTROL ACETATE 20 MG TAB PO SCH (22:06)
[2022-03-12 05:00] VITALS: BP 110/77
[2022-03-12] MEDS: MORPHINE SULF 30 mg ER tab PO SCH ×3 (05:54→21:38)
[2022-03-12] MEDS: Ensure HIGH Protein Chocolate 8oz Bottle PO SCH ×3 (07:36→16:08)
[2022-03-12 08:00] VITALS: BP 122/83
[2022-03-12] MEDS: LACTULOSE 20Gm/30ML SOLN PO SCH (08:41)
[2022-03-12] MEDS: MEGESTROL ACETATE 20 MG TAB PO SCH ×2 (08:41→21:38)
[2022-03-12] MEDS: DOCUSATE SOD 100 MG CAP PO SCH ×2 (08:42→21:38)
[2022-03-12] MEDS: PANTOPRAZOLE 40 MG TAB PO SCH (08:42)
[2022-03-12] MEDS: ENOXAPARIN SOD 40 MG/0.4 ML SYRINGE SC SCH (08:42)
[2022-03-12 12:00] VITALS: BP 122/77
[2022-03-12 16:00] VITALS: BP 128/93
[2022-03-12] MEDS: ONDANSETRON HCL 4 MG/2 ML VIAL IV PRN (17:58)
[2022-03-12] MEDS: PROMETHAZINE HCL 25 MG/ML 1ML IV PRN (21:38)
[2022-03-12 22:00] VITALS: BP_SYST 123; BP_SYST 156; BP_DIAS 75; BP_DIAS 95
[2022-03-13 05:00] VITALS: BP 134/91
[2022-03-13] MEDS: MORPHINE SULF 30 mg ER tab PO SCH ×3 (05:35→21:57)
[2022-03-13] MEDS: DOCUSATE SOD 100 MG CAP PO SCH ×2 (08:01→21:57)
[2022-03-13] MEDS: Ensure HIGH Protein Chocolate 8oz Bottle PO SCH ×3 (08:01→17:35)
[2022-03-13] MEDS: LACTULOSE 20Gm/30ML SOLN PO SCH ×2 (08:01→08:12)
[2022-03-13] MEDS: ENOXAPARIN SOD 40 MG/0.4 ML SYRINGE SC SCH (08:02)
[2022-03-13] MEDS: PANTOPRAZOLE 40 MG TAB PO SCH (08:02)
[2022-03-13] MEDS: MEGESTROL ACETATE 20 MG TAB PO SCH ×2 (08:02→21:57)
[2022-03-13] MEDS: PROMETHAZINE HCL 25 MG/ML 1ML IV PRN ×2 (08:03→22:06)
[2022-03-13 09:00] VITALS: BP 137/94
[2022-03-13 13:58] VITALS: BP 128/89
[2022-03-13 16:54] VITALS: BP 147/98
[2022-03-13] MEDS: ONDANSETRON HCL 4 MG/2 ML VIAL IV PRN (17:36)
[2022-03-13 21:53] VITALS: BP 147/84
[2022-03-14 04:58] VITALS: BP 147/89
[2022-03-14] MEDS: MORPHINE SULF 30 mg ER tab PO SCH ×3 (06:14→22:02)
[2022-03-14] MEDS: Ensure HIGH Protein Chocolate 8oz Bottle PO SCH ×3 (08:00→18:00)
[2022-03-14 08:29] VITALS: BP 141/93
[2022-03-14] MEDS: MEGESTROL ACETATE 20 MG TAB PO SCH ×2 (08:36→22:02)
[2022-03-14] MEDS: LACTULOSE 20Gm/30ML SOLN PO SCH ×2 (08:36→22:01)
[2022-03-14] MEDS: PANTOPRAZOLE 40 MG TAB PO SCH (08:37)
[2022-03-14] MEDS: ENOXAPARIN SOD 40 MG/0.4 ML SYRINGE SC SCH (08:37)
[2022-03-14] MEDS: DOCUSATE SOD 100 MG CAP PO SCH ×2 (08:37→22:02)
[2022-03-14] MEDS: SPIRONOLACTONE 25 MG TAB PO SCH (10:19)
[2022-03-14] MEDS: FUROSEMIDE 40 MG/4 ML VIAL IV SCH ×2 (10:19→16:36)
[2022-03-14] MEDS: PROMETHAZINE HCL 25 MG/ML 1ML IV PRN ×2 (10:19→16:35)
[2022-03-14 12:59] VITALS: BP 141/94
[2022-03-14 16:33] VITALS: BP 132/88
[2022-03-14 22:00] VITALS: BP 140/99
[2022-03-14] MEDS: ONDANSETRON HCL 4 MG/2 ML VIAL IV PRN (22:13)
[2022-03-15 05:00] VITALS: BP 129/94
[2022-03-15] MEDS: PROMETHAZINE HCL 25 MG/ML 1ML IV PRN (05:32)
[2022-03-15] MEDS: LACTULOSE 20Gm/30ML SOLN PO SCH ×3 (06:43→22:31)
[2022-03-15 06:44] LABS: Potassium 4.2 mmol/L (3.5-5.1)
[2022-03-15] MEDS: MORPHINE SULF 30 mg ER tab PO SCH ×3 (06:44→22:20)
[2022-03-15] MEDS: FUROSEMIDE 40 MG/4 ML VIAL IV SCH ×2 (06:44→18:04)
[2022-03-15 06:50] LABS: Calcium 8.6 mg/dL (8.5-10.1); Magnesium 2.4 mg/dL (1.6-2.6)
[2022-03-15] MEDS: Ensure HIGH Protein Chocolate 8oz Bottle PO SCH ×3 (08:00→18:03)
[2022-03-15 09:00] VITALS: BP 134/90
[2022-03-15] MEDS: DOCUSATE SOD 100 MG CAP PO SCH ×2 (11:18→22:30)
[2022-03-15] MEDS: SPIRONOLACTONE 25 MG TAB PO SCH (11:18)
[2022-03-15] MEDS: MEGESTROL ACETATE 20 MG TAB PO SCH ×2 (11:19→22:20)
[2022-03-15] MEDS: PANTOPRAZOLE 40 MG TAB PO SCH (11:20)
[2022-03-15] MEDS: ENOXAPARIN SOD 40 MG/0.4 ML SYRINGE SC SCH (11:22)
[2022-03-15] MEDS: MORPHINE SULFATE 4 MG/ML SYR/VIAL IV PRN (12:17)
[2022-03-15 12:31] VITALS: BP 135/82
[2022-03-15 17:14] VITALS: BP 126/87
[2022-03-15 22:00] VITALS: BP 144/75
[2022-03-16 05:00] VITALS: BP 115/77
[2022-03-16] MEDS: LACTULOSE 20Gm/30ML SOLN PO SCH ×3 (06:00→22:00)
[2022-03-16] MEDS: FUROSEMIDE 40 MG/4 ML VIAL IV SCH ×2 (06:09→18:10)
[2022-03-16] MEDS: MORPHINE SULF 30 mg ER tab PO SCH ×3 (06:10→22:15)
[2022-03-16] MEDS: Ensure HIGH Protein Chocolate 8oz Bottle PO SCH ×3 (08:15→18:30)
[2022-03-16 09:00] VITALS: BP 110/79
[2022-03-16] MEDS: ENOXAPARIN SOD 40 MG/0.4 ML SYRINGE SC SCH (09:39)
[2022-03-16] MEDS: PANTOPRAZOLE 40 MG TAB PO SCH (09:44)
[2022-03-16] MEDS: MEGESTROL ACETATE 20 MG TAB PO SCH ×2 (09:45→22:15)
[2022-03-16] MEDS: SPIRONOLACTONE 25 MG TAB PO SCH (09:45)
[2022-03-16] MEDS: DOCUSATE SOD 100 MG CAP PO SCH ×2 (09:45→22:15)
[2022-03-16 12:17] LABS: Albumin 2.2 g/dL (3.4-5.0); BUN/Creatinine Ratio 23.6; Calcium 8.5 mg/dL (8.5-10.1); Magnesium 2.1 mg/dL (1.6-2.6); Potassium 4.2 mmol/L (3.5-5.1)
[2022-03-16 12:20] LABS: Bilirubin, Total 1.2 mg/dL (0.2-1.0); Phosphorus 4.3 mg/dL (2.5-4.90)
[2022-03-16 13:00] VITALS: BP 130/87
[2022-03-16 16:15] VITALS: BP 125/85
[2022-03-16] MEDS: PROMETHAZINE HCL 25 MG/ML 1ML IV PRN (16:35)
[2022-03-16] MEDS: ALBUMIN 25% 50 ML IV SCH (18:10)
[2022-03-16 22:00] VITALS: BP 128/83
[2022-03-16] MEDS: TEMAZEPAM 15 MG CAP PO PRN (22:26)
[2022-03-17] MEDS: ALBUMIN 25% 50 ML IV SCH ×2 (00:23→09:48)
[2022-03-17 05:00] VITALS: BP 125/85
[2022-03-17] MEDS: MORPHINE SULF 30 mg ER tab PO SCH ×3 (06:00→21:09)
[2022-03-17] MEDS: LACTULOSE 20Gm/30ML SOLN PO SCH (06:00)
[2022-03-17] MEDS: FUROSEMIDE 40 MG/4 ML VIAL IV SCH ×2 (06:38→18:19)
[2022-03-17] MEDS: MORPHINE SULFATE 4 MG/ML SYR/VIAL IV PRN ×3 (06:40→23:36)
[2022-03-17 07:30] VITALS: BP 114/81
[2022-03-17] MEDS: Ensure HIGH Protein Chocolate 8oz Bottle PO SCH ×3 (08:00→18:00)
[2022-03-17] MEDS ORDERED: GASTROGRAFIN 120 ML SOL ONE (08:07)
[2022-03-17 09:00] VITALS: BP 124/83
[2022-03-17] MEDS: SPIRONOLACTONE 25 MG TAB PO SCH (09:50)
[2022-03-17] MEDS: ENOXAPARIN SOD 40 MG/0.4 ML SYRINGE SC SCH (09:51)
[2022-03-17] MEDS: DOCUSATE SOD 100 MG CAP PO SCH ×2 (10:00→21:14)
[2022-03-17] MEDS: MEGESTROL ACETATE 20 MG TAB PO SCH ×2 (10:00→21:15)
[2022-03-17 13:00] VITALS: BP 125/87
[2022-03-17] MEDS: PROMETHAZINE HCL 25 MG/ML 1ML IV PRN ×2 (15:26→23:27)
[2022-03-17 16:54] VITALS: BP 138/85
[2022-03-17 16:55] LABS: Basophils # (auto) 0 10 ^3/uL (0-0.2); Basophils % (auto) 0.4 % (0.0-2.0); Eosinophils # (auto) 0.1 10 ^3/uL (0-0.8); Eosinophils % (auto) 0.9 % (0.0-7.0); Hematocrit 46.9 % (41.0-53.0); Hemoglobin 15.8 g/dL (13.5-17.5); Lymphocytes # (auto) 0.5 10 ^3/uL (0.4-5.4); Lymphocytes % (auto) 8.6 % (10.0-50.0); Mean Corpuscular Hgb Conc. 33.7 g/dL (32.0-36.0); Mean Corpuscular Volume 91.9 fL (80.0-100.0); Monocytes # (auto) 0.8 10 ^3/uL (0-1.3); Monocytes % (auto) 13.9 % (0.0-12.0); Neutrophils # (auto) 4.5 10 ^3/uL (1.6-8.6); Neutrophils % (auto) 76.2 % (37.0-80.0); Nucleated Red Blood Cells % 0.2 %; Red Blood Cells 5.11 10^6/uL (4.5-5.90); Red Cell Distribution Width 18.8 % (11.8-14.3); White Blood Cell 5.9 10^3/uL (4.4-10.8)
[2022-03-17 17:14] LABS: BUN/Creatinine Ratio 31.4; Calcium 8.7 mg/dL (8.5-10.1); Magnesium 2.3 mg/dL (1.6-2.6)
[2022-03-17] MEDS ORDERED: CLINIMIX PER PHARMACY 0 ML IV SCH (17:15)
[2022-03-17 17:21] LABS: Potassium 2.9 mmol/L (3.5-5.1)
[2022-03-17] MEDS: POTASSIUM CHL 20MEQ/100ML 100 ML IV SCH ×2 (19:18→22:00)
[2022-03-17] MEDS ORDERED: AMINO ACID INFUSION IN D10W 1,000 ML IV SCH (20:00)
[2022-03-17] MEDS: CLINIMIX PER PHARMACY IV NR (20:28)
[2022-03-17] MEDS: PSYLLIUM PWD 5.8GM PKG PO SCH (21:14)
[2022-03-17 22:00] VITALS: BP 136/91
[2022-03-18] MEDS: POTASSIUM CHL 20MEQ/100ML 100 ML IV SCH ×3 (00:50→13:16)
[2022-03-18 05:00] VITALS: BP 151/94
[2022-03-18] MEDS: MORPHINE SULF 30 mg ER tab PO SCH ×3 (05:50→22:00)
[2022-03-18] MEDS: FUROSEMIDE 40 MG/4 ML VIAL IV SCH ×2 (05:50→18:18)
[2022-03-18 06:16] LABS: Albumin 2.6 g/dL (3.4-5.0); Calcium 8.2 mg/dL (8.5-10.1); Magnesium 1.9 mg/dL (1.6-2.6); Potassium 3.3 mmol/L (3.5-5.1)
[2022-03-18 06:21] LABS: BUN/Creatinine Ratio 32.8; Bilirubin, Total 1.2 mg/dL (0.2-1.0); Phosphorus 4.2 mg/dL (2.5-4.90); Total Protein 5.6 g/dL (6.4-8.2)
[2022-03-18 08:00] VITALS: BP 125/87
[2022-03-18] MEDS: Ensure HIGH Protein Chocolate 8oz Bottle PO SCH ×3 (08:00→18:00)
[2022-03-18 09:00] VITALS: BP 144/84
[2022-03-18] MEDS: DOCUSATE SOD 100 MG CAP PO SCH ×2 (09:32→22:00)
[2022-03-18] MEDS: SPIRONOLACTONE 25 MG TAB PO SCH (09:32)
[2022-03-18] MEDS: ENOXAPARIN SOD 40 MG/0.4 ML SYRINGE SC SCH (09:33)
[2022-03-18] MEDS: ONDANSETRON HCL 4 MG/2 ML VIAL IV PRN (09:33)
[2022-03-18] MEDS: PSYLLIUM PWD 5.8GM PKG PO SCH ×2 (09:33→22:00)
[2022-03-18] MEDS: MEGESTROL ACETATE 20 MG TAB PO SCH ×2 (09:34→22:00)
[2022-03-18] MEDS: PANTOPRAZOLE 40 MG/10 ML VIAL INJ IV SCH (09:35)
[2022-03-18] MEDS ORDERED: DEXTROSE (50%) 50ML SYRG IV SCH (12:23)
[2022-03-18] MEDS: InsuLIN REG 1unit/0.01ml Soln (100units/ml) SC SCH ×2 (12:24→18:00)
[2022-03-18] MEDS: ACCU-CHEK COMFORT CURVE STRIP VI SCH ×2 (12:36→18:19)
[2022-03-18 13:00] VITALS: BP 116/95
[2022-03-18 14:10] LABS: INR 1.5 (0.9-1.15)
[2022-03-18 17:00] VITALS: BP 113/84
[2022-03-18] MEDS: MORPHINE SULFATE 4 MG/ML SYR/VIAL IV PRN (20:14)
[2022-03-18] MEDS: CLINIMIX PER PHARMACY IV NR (21:29)
[2022-03-18 22:00] VITALS: BP 122/86
[2022-03-19 05:00] VITALS: BP 122/86
[2022-03-19 05:54] LABS: Albumin 2.7 g/dL (3.4-5.0); Calcium 8.3 mg/dL (8.5-10.1); Magnesium 2.2 mg/dL (1.6-2.6); Potassium 3.3 mmol/L (3.5-5.1)
[2022-03-19 05:56] LABS: BUN/Creatinine Ratio 31.8; Phosphorus 3.4 mg/dL (2.5-4.90)
[2022-03-19] MEDS: InsuLIN REG 1unit/0.01ml Soln (100units/ml) SC SCH ×4 (06:00→17:42)
[2022-03-19] MEDS: ACCU-CHEK COMFORT CURVE STRIP VI SCH ×4 (06:13→17:42)
[2022-03-19] MEDS: MORPHINE SULF 30 mg ER tab PO SCH ×3 (06:13→21:20)
[2022-03-19] MEDS: FUROSEMIDE 40 MG/4 ML VIAL IV SCH ×2 (06:13→18:49)
[2022-03-19] MEDS: Ensure HIGH Protein Chocolate 8oz Bottle PO SCH ×3 (08:00→17:41)
[2022-03-19] MEDS ORDERED: MORP30TA5 PO (08:13)
[2022-03-19 09:00] VITALS: BP 127/83
[2022-03-19 13:00] VITALS: BP 114/77
[2022-03-19] MEDS: PANTOPRAZOLE 40 MG/10 ML VIAL INJ IV SCH (13:29)
[2022-03-19] MEDS: MEGESTROL ACETATE 20 MG TAB PO SCH ×2 (13:29→21:17)
[2022-03-19] MEDS: PSYLLIUM PWD 5.8GM PKG PO SCH ×2 (13:31→22:00)
[2022-03-19] MEDS: SPIRONOLACTONE 25 MG TAB PO SCH (13:31)
[2022-03-19] MEDS: DOCUSATE SOD 100 MG CAP PO SCH ×2 (13:31→21:17)
[2022-03-19] MEDS: ENOXAPARIN SOD 40 MG/0.4 ML SYRINGE SC SCH (13:31)
[2022-03-19] MEDS ORDERED: POTASSIUM CHL 20MEQ/100ML 100 ML IV SCH (13:45)
[2022-03-19] MEDS: ONDANSETRON HCL 4 MG/2 ML VIAL IV PRN (13:58)
[2022-03-19] MEDS ORDERED: POTASSIUM CHLORIDE 20 MEQ, LIDOCAINE 1% (LOCAL ANESTH.) 2 ML in SODIUM CHL 0.9% 100 ML IV ONE (16:30)
[2022-03-19 16:39] VITALS: BP 120/83
[2022-03-19] MEDS: MORPHINE SULFATE 4 MG/ML SYR/VIAL IV PRN (18:50)
[2022-03-19] MEDS: CLINIMIX PER PHARMACY IV NR (20:39)
[2022-03-19 22:00] VITALS: BP 118/84
[2022-03-20] MEDS: MORPHINE SULFATE 4 MG/ML SYR/VIAL IV PRN (02:20)
[2022-03-20 05:00] VITALS: BP 112/83
[2022-03-20] MEDS: InsuLIN REG 1unit/0.01ml Soln (100units/ml) SC SCH ×4 (06:00→18:00)
[2022-03-20] MEDS: ACCU-CHEK COMFORT CURVE STRIP VI SCH ×4 (06:24→17:30)
[2022-03-20] MEDS: MORPHINE SULF 30 mg ER tab PO SCH ×3 (06:26→23:33)
[2022-03-20] MEDS: FUROSEMIDE 40 MG/4 ML VIAL IV SCH ×2 (06:26→18:21)
[2022-03-20] MEDS: ONDANSETRON HCL 4 MG/2 ML VIAL IV PRN ×2 (06:26→11:06)
[2022-03-20] MEDS: Ensure HIGH Protein Chocolate 8oz Bottle PO SCH ×3 (08:00→18:00)
[2022-03-20 09:03] VITALS: BP 115/79
[2022-03-20] MEDS: MEGESTROL ACETATE 20 MG TAB PO SCH ×2 (10:00→23:33)
[2022-03-20] MEDS: PANTOPRAZOLE 40 MG/10 ML VIAL INJ IV SCH (11:06)
[2022-03-20] MEDS: ENOXAPARIN SOD 40 MG/0.4 ML SYRINGE SC SCH (11:06)
[2022-03-20] MEDS: SPIRONOLACTONE 25 MG TAB PO SCH (11:06)
[2022-03-20] MEDS: DOCUSATE SOD 100 MG CAP PO SCH ×2 (11:06→23:33)
[2022-03-20] MEDS: PSYLLIUM PWD 5.8GM PKG PO SCH ×3 (11:07→23:33)
[2022-03-20] MEDS: ACETAMINOPHEN 325 MG TAB PO PRN ×2 (11:18→18:21)
[2022-03-20 13:09] VITALS: BP 111/81
[2022-03-20 14:24] LABS: Albumin 2.4 g/dL (3.4-5.0); Calcium 8.1 mg/dL (8.5-10.1); Potassium 3.1 mmol/L (3.5-5.1)
[2022-03-20 14:27] LABS: BUN/Creatinine Ratio 28.2; Phosphorus 3.2 mg/dL (2.5-4.90); Total Protein 5.8 g/dL (6.4-8.2)
[2022-03-20] MEDS ORDERED: POTASSIUM CHLORIDE 60 MEQ, LIDOCAINE 1% (LOCAL ANESTH.) 6 ML in SODIUM CHL 0.9% 500 ML IV ONE (15:00)
[2022-03-20] MEDS ORDERED: FLEET ENEMA(ADULT) 135 ML PR ONE (16:00)
[2022-03-20] MEDS ORDERED: METOCLOPRAMIDE HCL 5MG/ml INJ 2ml VIAL IV ONE (16:00)
[2022-03-20] MEDS ORDERED: TPN PER PHARMACY 0 ML IV SCH (16:00)
[2022-03-20] MEDS: SODIUM CHLORIDE 0.9% 1,000 ML IV SCH (16:23)
[2022-03-20 17:03] VITALS: BP 122/88
[2022-03-20] MEDS: CLINIMIX PER PHARMACY IV NR (21:00)
[2022-03-20 22:00] VITALS: BP 130/76
[2022-03-21] MEDS: MORPHINE SULFATE 4 MG/ML SYR/VIAL IV PRN ×5 (01:30→23:27)
[2022-03-21] MEDS: SODIUM CHLORIDE 0.9% 1,000 ML IV SCH ×2 (02:00→12:00)
[2022-03-21 05:00] VITALS: BP 130/91
[2022-03-21] MEDS: MORPHINE SULF 30 mg ER tab PO SCH ×3 (05:52→22:00)
[2022-03-21] MEDS: ACCU-CHEK COMFORT CURVE STRIP VI SCH ×5 (05:53→23:29)
[2022-03-21] MEDS: InsuLIN REG 1unit/0.01ml Soln (100units/ml) SC SCH ×5 (05:53→23:29)
[2022-03-21] MEDS: FUROSEMIDE 40 MG/4 ML VIAL IV SCH ×2 (05:53→18:21)
[2022-03-21] MEDS: Ensure HIGH Protein Chocolate 8oz Bottle PO SCH ×3 (08:47→18:00)
[2022-03-21 09:00] VITALS: BP 111/81
[2022-03-21] MEDS: SPIRONOLACTONE 25 MG TAB PO SCH (10:00)
[2022-03-21] MEDS: DOCUSATE SOD 100 MG CAP PO SCH ×2 (10:00→22:00)
[2022-03-21] MEDS: MEGESTROL ACETATE 20 MG TAB PO SCH ×2 (10:00→22:00)
[2022-03-21] MEDS: PSYLLIUM PWD 5.8GM PKG PO SCH ×2 (10:00→22:00)
[2022-03-21] MEDS: PANTOPRAZOLE 40 MG/10 ML VIAL INJ IV SCH (11:03)
[2022-03-21 11:40] LABS: Albumin 2.5 g/dL (3.4-5.0); Potassium 4.4 mmol/L (3.5-5.1)
[2022-03-21 11:46] LABS: BUN/Creatinine Ratio 25.6; Bilirubin, Total 1.4 mg/dL (0.2-1.0); Phosphorus 3.3 mg/dL (2.5-4.90); Total Protein 6.2 g/dL (6.4-8.2)
[2022-03-21 13:54] VITALS: BP 112/80
[2022-03-21] MEDS: ONDANSETRON HCL 4 MG/2 ML VIAL IV PRN ×2 (15:43→20:11)
[2022-03-21 16:59] VITALS: BP 125/77
[2022-03-21] MEDS: CLINIMIX PER PHARMACY IV NR (19:16)
[2022-03-21] MEDS ORDERED: PPN PER PHARMACY IV NR ×9 (20:00)
[2022-03-21 21:57] VITALS: BP 132/91
[2022-03-22] VITALS (7 sets, daily range): BP systolic 118–132; BP diastolic 82–91
[2022-03-22] MEDS: MORPHINE SULFATE 4 MG/ML SYR/VIAL IV PRN ×7 (03:09→23:25)
[2022-03-22] MEDS: ONDANSETRON HCL 4 MG/2 ML VIAL IV PRN ×2 (03:09→20:39)
[2022-03-22] MEDS: FUROSEMIDE 40 MG/4 ML VIAL IV SCH ×2 (05:37→18:39)
[2022-03-22] MEDS: ACCU-CHEK COMFORT CURVE STRIP VI SCH ×4 (05:37→23:24)
[2022-03-22] MEDS: MORPHINE SULF 30 mg ER tab PO SCH ×2 (05:37→14:00)
[2022-03-22] MEDS: InsuLIN REG 1unit/0.01ml Soln (100units/ml) SC SCH ×4 (05:46→23:23)
[2022-03-22 06:00] LABS: Albumin 2.1 g/dL (3.4-5.0); Calcium 7.7 mg/dL (8.5-10.1); Magnesium 1.8 mg/dL (1.6-2.6)
[2022-03-22 06:05] LABS: BUN/Creatinine Ratio 29.4; Bilirubin, Total 1.3 mg/dL (0.2-1.0); Total Protein 5.3 g/dL (6.4-8.2)
[2022-03-22] MEDS: Ensure HIGH Protein Chocolate 8oz Bottle PO SCH ×3 (08:00→17:33)
[2022-03-22 08:33] LABS: INR 1.71 (0.9-1.15); Partial Thromboplastin Time 39.2 sec (24.6-33.4)
[2022-03-22 08:36] LABS: Basophils # (auto) 0 10 ^3/uL (0-0.2); Basophils % (auto) 0.5 % (0.0-2.0); Eosinophils # (auto) 0.1 10 ^3/uL (0-0.8); Eosinophils % (auto) 1.6 % (0.0-7.0); Hematocrit 46.3 % (41.0-53.0); Hemoglobin 15.5 g/dL (13.5-17.5); Lymphocytes # (auto) 0.7 10 ^3/uL (0.4-5.4); Lymphocytes % (auto) 9.3 % (10.0-50.0); Mean Corpuscular Hemoglobin 31.5 pg (28.0-32.0); Mean Corpuscular Hgb Conc. 33.5 g/dL (32.0-36.0); Mean Corpuscular Volume 94.1 fL (80.0-100.0); Monocytes % (auto) 13.5 % (0.0-12.0); Neutrophils # (auto) 5.3 10 ^3/uL (1.6-8.6); Neutrophils % (auto) 75.1 % (37.0-80.0); Red Blood Cells 4.92 10^6/uL (4.5-5.90); White Blood Cell 7.1 10^3/uL (4.4-10.8)
[2022-03-22] MEDS ORDERED: MORPHINE SULFATE INJ 2 MG/ml SYRG IV PRN (09:30)
[2022-03-22] MEDS: MEGESTROL ACETATE 20 MG TAB PO SCH ×2 (10:00→22:00)
[2022-03-22] MEDS: DOCUSATE SOD 100 MG CAP PO SCH ×2 (10:00→22:00)
[2022-03-22] MEDS: SPIRONOLACTONE 25 MG TAB PO SCH (10:00)
[2022-03-22] MEDS: PSYLLIUM PWD 5.8GM PKG PO SCH ×2 (10:00→22:00)
[2022-03-22] MEDS: PANTOPRAZOLE 40 MG/10 ML VIAL INJ IV SCH (10:14)
[2022-03-22] MEDS: POTASSIUM CHL 20MEQ/100ML 100 ML IV SCH ×2 (11:08→13:23)
[2022-03-22] MEDS ORDERED: PPN PER PHARMACY IV NR ×9 (20:00)
[2022-03-23] MEDS: ONDANSETRON HCL 4 MG/2 ML VIAL IV PRN ×2 (03:27→20:50)
[2022-03-23] MEDS: MORPHINE SULFATE 4 MG/ML SYR/VIAL IV PRN ×7 (03:28→23:33)
[2022-03-23 05:19] VITALS: BP 110/81
[2022-03-23] MEDS: ACCU-CHEK COMFORT CURVE STRIP VI SCH ×4 (05:38→23:35)
[2022-03-23] MEDS: FUROSEMIDE 40 MG/4 ML VIAL IV SCH ×2 (05:38→16:49)
[2022-03-23] MEDS: InsuLIN REG 1unit/0.01ml Soln (100units/ml) SC SCH ×4 (05:46→23:35)
[2022-03-23 07:28] LABS: Potassium 3.9 mmol/L (3.5-5.1)
[2022-03-23 07:34] LABS: Albumin 2.9 g/dL (3.4-5.0); BUN/Creatinine Ratio 25.8; Bilirubin, Total 0.9 mg/dL (0.2-1.0); Magnesium 2.2 mg/dL (1.6-2.6); Phosphorus 2.6 mg/dL (2.5-4.90); Total Protein 5.2 g/dL (6.4-8.2)
[2022-03-23 08:00] VITALS: BP 124/84
[2022-03-23] MEDS: Ensure HIGH Protein Chocolate 8oz Bottle PO SCH ×3 (08:00→16:54)
[2022-03-23] MEDS: PANTOPRAZOLE 40 MG/10 ML VIAL INJ IV SCH (09:17)
[2022-03-23] MEDS: MEGESTROL ACETATE 20 MG TAB PO SCH ×2 (10:00→22:00)
[2022-03-23] MEDS: DOCUSATE SOD 100 MG CAP PO SCH ×2 (10:00→22:00)
[2022-03-23] MEDS: SPIRONOLACTONE 25 MG TAB PO SCH (10:00)
[2022-03-23] MEDS: PSYLLIUM PWD 5.8GM PKG PO SCH ×2 (10:00→22:00)
[2022-03-23 13:00] VITALS: BP 122/82
[2022-03-23 17:00] VITALS: BP 120/89
[2022-03-23 20:00] VITALS: BP 136/91
[2022-03-23] MEDS ORDERED: TPN PER PHARMACY IV NR ×8 (20:00)
[2022-03-23 22:00] VITALS: BP 136/91
[2022-03-24] MEDS: MORPHINE SULFATE 4 MG/ML SYR/VIAL IV PRN ×6 (03:02→18:21)
[2022-03-24] MEDS: ONDANSETRON HCL 4 MG/2 ML VIAL IV PRN (03:02)
[2022-03-24 04:52] VITALS: BP 124/91
[2022-03-24] MEDS: InsuLIN REG 1unit/0.01ml Soln (100units/ml) SC SCH ×4 (05:46→23:43)
[2022-03-24] MEDS: ACCU-CHEK COMFORT CURVE STRIP VI SCH ×4 (05:47→23:43)
[2022-03-24] MEDS: FUROSEMIDE 40 MG/4 ML VIAL IV SCH ×2 (05:49→18:21)
[2022-03-24 06:37] LABS: Albumin 2.1 g/dL (3.4-5.0); BUN/Creatinine Ratio 33.3; Bilirubin, Total 1.3 mg/dL (0.2-1.0); Magnesium 2.2 mg/dL (1.6-2.6); Phosphorus 3.7 mg/dL (2.5-4.90)
[2022-03-24 06:47] LABS: Potassium 2.6 mmol/L (3.5-5.1)
[2022-03-24] MEDS ORDERED: LIDOCAINE W/ EPINEPHRINE 2% INJ 20ML VIAL ONE (07:56)
[2022-03-24] MEDS: Ensure HIGH Protein Chocolate 8oz Bottle PO SCH ×3 (08:00→18:00)
[2022-03-24 08:14] VITALS: BP 125/92
[2022-03-24] MEDS: PANTOPRAZOLE 40 MG/10 ML VIAL INJ IV SCH (08:29)
[2022-03-24] MEDS: MEGESTROL ACETATE 20 MG TAB PO SCH ×2 (10:00→21:37)
[2022-03-24] MEDS: DOCUSATE SOD 100 MG CAP PO SCH ×2 (10:00→21:37)
[2022-03-24] MEDS: PSYLLIUM PWD 5.8GM PKG PO SCH ×2 (10:00→21:37)
[2022-03-24] MEDS: SPIRONOLACTONE 25 MG TAB PO SCH (10:00)
[2022-03-24] MEDS: POTASSIUM CHL 20MEQ/100ML 100 ML IV SCH ×2 (10:52→15:13)
[2022-03-24 12:27] VITALS: BP 115/82
[2022-03-24 16:16] VITALS: BP 128/89
[2022-03-24] MEDS ORDERED: TPN PER PHARMACY IV NR ×10 (20:00)
[2022-03-24 22:00] VITALS: BP 126/92
[2022-03-25] VITALS (7 sets, daily range): BP systolic 121–157; BP diastolic 85–103
[2022-03-25] MEDS: MORPHINE SULFATE 4 MG/ML SYR/VIAL IV PRN ×8 (00:07→21:41)
[2022-03-25] MEDS: FUROSEMIDE 40 MG/4 ML VIAL IV SCH ×2 (05:41→17:06)
[2022-03-25] MEDS: ACCU-CHEK COMFORT CURVE STRIP VI SCH ×3 (05:48→17:06)
[2022-03-25] MEDS: InsuLIN REG 1unit/0.01ml Soln (100units/ml) SC SCH ×3 (05:50→17:13)
[2022-03-25 06:44] LABS: Albumin 2.2 g/dL (3.4-5.0); BUN/Creatinine Ratio 35.9; Bilirubin, Total 1.5 mg/dL (0.2-1.0); Magnesium 2.1 mg/dL (1.6-2.6); Phosphorus 3.3 mg/dL (2.5-4.90); Total Protein 6.1 g/dL (6.4-8.2)
[2022-03-25] MEDS: Ensure HIGH Protein Chocolate 8oz Bottle PO SCH ×3 (08:00→18:00)
[2022-03-25] MEDS: PANTOPRAZOLE 40 MG/10 ML VIAL INJ IV SCH (08:26)
[2022-03-25] MEDS: POTASSIUM CHL 20MEQ/100ML 100 ML IV SCH ×3 (08:30→12:47)
[2022-03-25] MEDS: MEGESTROL ACETATE 20 MG TAB PO SCH (08:32)
[2022-03-25] MEDS: SPIRONOLACTONE 25 MG TAB PO SCH (08:32)
[2022-03-25] MEDS: DOCUSATE SOD 100 MG CAP PO SCH (08:32)
[2022-03-25] MEDS: PSYLLIUM PWD 5.8GM PKG PO SCH (08:33)
[2022-03-25] MEDS ORDERED: TPN PER PHARMACY IV NR ×10 (20:00)
== END 2022-03-25 23:40 | disposition home health service (06) | DRG 375 ==
LOC: ER 16:52 → TELE 03-09 07:46 → TELE-WESTW 03-10 22:22
PROVIDERS: ADMIT Nurse Practitioner; ATTEND Nurse Practitioner
PROC: 0W9G3ZZ Drainage of Peritoneal Cavity, Percutaneous Approach (ICD-10-PCS; principal; 2022-03-10)
PROC: 0D9670Z Drainage of Stomach with Drainage Device, Via Natural or Artificial Opening (ICD-10-PCS; 2022-03-19)
PROC: 3E0336Z Introduction of Nutritional Substance into Peripheral Vein, Percutaneous Approach (ICD-10-PCS; 2022-03-21)
DX: C18.9 Malignant neoplasm of colon, unspecified (principal); C78.00 Secondary malignant neoplasm of unspecified lung; R18.0 Malignant ascites; K56.609 Unspecified intestinal obstruction, unspecified as to partial versus complete obstruction; C78.7 Secondary malignant neoplasm of liver and intrahepatic bile duct; J90 Pleural effusion, not elsewhere classified; E44.0 Moderate protein-calorie malnutrition; C78.6 Secondary malignant neoplasm of retroperitoneum and peritoneum; K56.7 Ileus, unspecified; Z20.822 Contact with and (suspected) exposure to COVID-19; E87.8 Other disorders of electrolyte and fluid balance, not elsewhere classified; K40.90 Unilateral inguinal hernia, without obstruction or gangrene, not specified as recurrent; Z68.31 Body mass index [BMI] 31.0-31.9, adult; E11.65 Type 2 diabetes mellitus with hyperglycemia; E78.5 Hyperlipidemia, unspecified; E87.6 Hypokalemia; E88.09 Other disorders of plasma-protein metabolism, not elsewhere classified; H91.3 Deaf nonspeaking, not elsewhere classified; I10 Essential (primary) hypertension; J45.909 Unspecified asthma, uncomplicated; Z80.8 Family history of malignant neoplasm of other organs or systems; Z85.038 Personal history of other malignant neoplasm of large intestine
CPT/HCPCS: 36415; 71045; 73030; 74018; 74177; 74250; 76705; 76942; 78306; 80048; 80053; 80069; 82962; 83605; 83615; 83690; 83735; 83986; 84100; 84478; 84484; 85025; 85610; 85730; 87205; 87426; 89051; 93970; 96361; 96374; 96375; 96376; C9113; G0378; J1815; J2001; J2405; J3480; J7131

== ENCOUNTER 2022-04-13 15:22 | Inpatient (IN) | payer MEDICARE, MEDICAID ==
[~2022-04-13] VITALS: Ht 182.9 cm; Wt 109.0 kg
[~2022-04-13 15:22] MED LIST changes: +MORP30TA5 PO
[2022-04-13 17:17] LABS: Basophils # (auto) 0.1 10 ^3/uL (0-0.2); Basophils % (auto) 0.4 % (0.0-2.0); Eosinophils # (auto) 0 10 ^3/uL (0-0.8); Lymphocytes # (auto) 0.3 10 ^3/uL (0.4-5.4); Lymphocytes % (auto) 1.5 % (10.0-50.0); Mean Corpuscular Hemoglobin 30.6 pg (28.0-32.0); Mean Corpuscular Hgb Conc. 32.2 g/dL (32.0-36.0); Monocytes # (auto) 1.3 10 ^3/uL (0-1.3); Neutrophils # (auto) 16.6 10 ^3/uL (1.6-8.6); Neutrophils % (auto) 91.1 % (37.0-80.0); Nucleated Red Blood Cells % 0.2 %; Red Blood Cells 5.89 10^6/uL (4.5-5.90); Red Cell Distribution Width 19.2 % (11.8-14.3); White Blood Cell 18.2 10^3/uL (4.4-10.8)
[2022-04-13 17:31] LABS: INR 1.59 (0.9-1.15)
[2022-04-13 17:43] LABS: Alanine Aminotransferase 89 U/L (16-61); Albumin 1.6 g/dL (3.4-5.0); Anion Gap 13 (5-15); Aspartate Aminotransferase 149 U/L (15-37); BUN/Creatinine Ratio 62.6; Blood Urea Nitrogen 72 mg/dL (7-18); Calcium 8.7 mg/dL (8.5-10.1); Carbon Dioxide 18 mmol/L (21-32); Chloride 108 mmol/L (98-107); GFR African American 83 mL/min; GFR Non-African American 69 mL/min; Glucose 138 mg/dL (74-106); Sodium 139 mmol/L (136-145)
[2022-04-13 17:46] LABS: Alkaline Phosphatase 457 U/L (45-117); Bilirubin, Total 3.8 mg/dL (0.2-1.0); Total Protein 6.6 g/dL (6.4-8.2)
[2022-04-13] MEDS ORDERED: SODIUM CHLORIDE 0.9% 1,000 ML IV ONE ×2 (19:00)
[2022-04-13] MEDS: SODIUM CHLORIDE 0.9% 1,000 ML IV SCH ×2 (19:45→20:45)
[2022-04-13] MEDS ORDERED: ONDANSETRON HCL 4 MG/2 ML VIAL IV PRN (19:45)
[2022-04-13] MEDS ORDERED: DOCUSATE SOD 100 MG CAP PO PRN (19:45)
[2022-04-13] MEDS ORDERED: MORPHINE SULFATE INJ 2 MG/ml SYRG IV PRN ×2 (19:45)
[2022-04-13] MEDS ORDERED: TEMAZEPAM 15 MG CAP PO PRN (19:45)
[2022-04-13] MEDS ORDERED: NITROGLYCERIN 0.4 MG SL TAB SL PRN (19:45)
[2022-04-13] MEDS ORDERED: ACETAMINOPHEN 325 MG TAB PO PRN (19:45)
[2022-04-13] MEDS: cefTRIAXone 1GM/50ML D5W 50 ML IV SCH (20:45)
[2022-04-13] MEDS ORDERED: ALPRAZolam 0.5 MG TAB PO PRN (20:45)
[2022-04-13] MEDS ORDERED: DEXTROSE (50%) 50ML SYRG IV PRN (20:45)
[2022-04-13] MEDS: ACCU-CHEK COMFORT CURVE STRIP VI SCH (22:00)
[2022-04-13] MEDS: InsuLIN REG 1unit/0.01ml Soln (100units/ml) SC SCH (22:00)
[2022-04-13] MEDS: MORPHINE SULF 30 mg ER tab PO SCH (23:48)
[2022-04-14] VITALS (10 sets, daily range): BP systolic 41–94; BP diastolic 21–59
[2022-04-14] MEDS: SODIUM CHLORIDE 0.9% 1,000 ML IV SCH ×5 (02:43→16:45)
[2022-04-14] MEDS ORDERED: ETOMIDATE (2MG/ML) 20ML VIAL IV ONE ×2 (05:41→05:50)
[2022-04-14] MEDS ORDERED: ROCURONIUM 10MG/ML 10ML VIAL IV ONE ×2 (05:41→05:51)
[2022-04-14] MEDS ORDERED: MIDAZOLAM DRIP 50 mg/50mL 50 ML IV ONE (05:41)
[2022-04-14] MEDS ORDERED: MIDAZOLAM HCL 2MG/2ML 2ml VIAL (1mg/ml) ONE (05:43)
[2022-04-14] MEDS ORDERED: MIDAZOLAM HCL 5 MG/ML-1ML VIAL IV ONE (05:49)
[2022-04-14] MEDS ORDERED: PANTOPRAZOLE 40 MG/10 ML VIAL INJ IV ONE (06:00)
[2022-04-14] MEDS: MORPHINE SULF 30 mg ER tab PO SCH ×3 (06:00→22:00)
[2022-04-14] MEDS ORDERED: OCTREOTIDE ACETATE 100 MCG/ML VL ONE ×2 (06:34→06:35)
[2022-04-14 07:25] LABS: Basophils # (auto) 0 10 ^3/uL (0-0.2); Basophils % (auto) 0.2 % (0.0-2.0); Eosinophils # (auto) 0 10 ^3/uL (0-0.8); Lymphocytes # (auto) 0.3 10 ^3/uL (0.4-5.4); Monocytes # (auto) 0.9 10 ^3/uL (0-1.3)
[2022-04-14 07:26] LABS: Hemoglobin 17.3 g/dL (13.5-17.5); Lymphocytes % (auto) 2.3 % (10.0-50.0); Mean Corpuscular Hemoglobin 30.6 pg (28.0-32.0); Mean Corpuscular Volume 95.5 fL (80.0-100.0); Neutrophils % (auto) 90.5 % (37.0-80.0); Nucleated Red Blood Cells % 0.1 %; Red Blood Cells 5.66 10^6/uL (4.5-5.90); White Blood Cell 13.3 10^3/uL (4.4-10.8)
[2022-04-14 07:38] LABS: Albumin 1.7 g/dL (3.4-5.0); Calcium 8.2 mg/dL (8.5-10.1); Potassium 5.2 mmol/L (3.5-5.1)
[2022-04-14] MEDS: InsuLIN REG 1unit/0.01ml Soln (100units/ml) SC SCH ×3 (07:41→17:00)
[2022-04-14] MEDS: ACCU-CHEK COMFORT CURVE STRIP VI SCH ×3 (07:41→17:03)
[2022-04-14 07:42] LABS: BUN/Creatinine Ratio 57.1; Bilirubin, Total 3.8 mg/dL (0.2-1.0); Total Protein 6.1 g/dL (6.4-8.2)
[2022-04-14] MEDS: ENSURE CLEAR Apple 8oz Carton PO SCH ×3 (07:42→18:00)
[2022-04-14] MEDS: OCTREOTIDE ACETATE 500 MCG in SODIUM CHL 0.9% 99 ML IV SCH ×2 (07:52→16:45)
[2022-04-14] MEDS: PANTOPRAZOLE 40mg/50ML NS AE 50 ML IV SCH ×4 (07:58→21:25)
[2022-04-14] MEDS ORDERED: NOREPINEPHRINE 8 MG/250ML KIT 250 ML IV ONE (08:18)
[2022-04-14] MEDS: NOREPINEPHRINE 8 MG/250ML KIT 250 ML IV SCH ×2 (08:24→20:23)
[2022-04-14] MEDS: cefTRIAXone 1GM/50ML D5W 50 ML IV SCH (09:08)
[2022-04-14] MEDS: DULoxetine HCL 30 MG CAP PO SCH (10:00)
[2022-04-14] MEDS: PANTOPRAZOLE 40 MG/10 ML VIAL INJ IV SCH (10:00)
[2022-04-14] MEDS ORDERED: ENOXAPARIN SOD 30 MG/0.3 ML SYRINGE SC SCH (10:00)
[2022-04-14] MEDS ORDERED: phytonadione 10 MG in SODIUM CHL 0.9% 50 ML IV ONE (12:00)
[2022-04-14] MEDS: ZOLPIDEM TARTRATE 5 MG TAB PO SCH (18:00)
[2022-04-14] MEDS: PHENYLEPHRINE IV 250 ML IV SCH (21:24)
[2022-04-15] VITALS (12 sets, daily range): BP systolic 92–114; BP diastolic 31–79
[2022-04-15] MEDS: PHENYLEPHRINE IV 250 ML IV SCH ×5 (00:53→22:51)
[2022-04-15] MEDS: PANTOPRAZOLE 40mg/50ML NS AE 50 ML IV SCH ×2 (02:38→08:31)
[2022-04-15] MEDS: SODIUM CHLORIDE 0.9% 1,000 ML IV SCH ×8 (02:38→23:57)
[2022-04-15] MEDS: OCTREOTIDE ACETATE 500 MCG in SODIUM CHL 0.9% 99 ML IV SCH ×3 (02:39→22:51)
[2022-04-15] MEDS: ACCU-CHEK COMFORT CURVE STRIP VI SCH ×5 (02:51→21:59)
[2022-04-15] MEDS: InsuLIN REG 1unit/0.01ml Soln (100units/ml) SC SCH ×5 (02:52→21:59)
[2022-04-15] MEDS: NOREPINEPHRINE 8 MG/250ML KIT 250 ML IV SCH ×3 (03:34→23:34)
[2022-04-15] MEDS: MIDAZOLAM DRIP 50 mg/50mL 50 ML IV SCH ×2 (03:42→22:44)
[2022-04-15] MEDS: MORPHINE SULF 30 mg ER tab PO SCH ×3 (05:17→21:59)
[2022-04-15 06:50] LABS: Eosinophils # (auto) 0 10 ^3/uL (0-0.8); Eosinophils % (auto) 0.1 % (0.0-7.0)
[2022-04-15 06:52] LABS: Basophils # (auto) 0.1 10 ^3/uL (0-0.2); Basophils % (auto) 0.3 % (0.0-2.0); Hemoglobin 18.9 g/dL (13.5-17.5); Lymphocytes % (auto) 5.1 % (10.0-50.0); Mean Corpuscular Hemoglobin 30.9 pg (28.0-32.0); Mean Corpuscular Hgb Conc. 33.1 g/dL (32.0-36.0); Mean Corpuscular Volume 93.4 fL (80.0-100.0); Monocytes # (auto) 2.1 10 ^3/uL (0-1.3); Monocytes % (auto) 10.5 % (0.0-12.0); Neutrophils # (auto) 16.8 10 ^3/uL (1.6-8.6); Nucleated Red Blood Cells % 0.3 %; Red Blood Cells 6.09 10^6/uL (4.5-5.90)
[2022-04-15 07:07] LABS: Hematocrit 56.9 % (41.0-53.0)
[2022-04-15 07:08] LABS: Albumin 1.5 g/dL (3.4-5.0); Calcium 7.6 mg/dL (8.5-10.1)
[2022-04-15 07:13] LABS: BUN/Creatinine Ratio 44.8; Bilirubin, Total 4.8 mg/dL (0.2-1.0); Phosphorus 7.6 mg/dL (2.5-4.90); Total Protein 5.8 g/dL (6.4-8.2)
[2022-04-15 07:28] LABS: Urine Bacteria FEW /hpf (None Seen); Urine Blood 2+ /uL (Negative); Urine Hyaline Cast FEW /lpf (0 - 2); Urine Mucus FEW (None Seen); Urine Specific Gravity 1.021 (1.001-1.035); Urine WBC 16 /hpf (0 - 3)
[2022-04-15 07:38] LABS: Potassium 6.1 mmol/L (3.5-5.1)
[2022-04-15] MEDS ORDERED: ALBUTEROL MEDNEB 2.5 mg/3ml NEB NEB ONE (07:45)
[2022-04-15] MEDS ORDERED: CALCIUM GLUC 1,000mg/50ml-NS 50 ML IV ONE (07:45)
[2022-04-15] MEDS ORDERED: SODIUM BICARBONATE 8.4% INJ 50ML SYRINGE IV ONE (07:45)
[2022-04-15] MEDS ORDERED: FUROSEMIDE 20 MG/2 ML VIAL IV ONE (07:45)
[2022-04-15] MEDS ORDERED: InsuLIN REG 1unit/0.01ml Soln (100units/ml) IV ONE (07:45)
[2022-04-15] MEDS ORDERED: DEXTROSE (50%) 50ML SYRG IV ONE (07:45)
[2022-04-15] MEDS: ENSURE CLEAR Apple 8oz Carton PO SCH ×3 (08:00→17:10)
[2022-04-15] MEDS: cefTRIAXone 1GM/50ML D5W 50 ML IV SCH (09:01)
[2022-04-15] MEDS: DULoxetine HCL 30 MG CAP PO SCH (10:00)
[2022-04-15] MEDS: PANTOPRAZOLE 40 MG/10 ML VIAL INJ IV SCH (10:07)
[2022-04-15] MEDS: AZITHROMYCIN 500MG/ 250ML 250 ML IV SCH (10:07)
[2022-04-15] MEDS: ZOLPIDEM TARTRATE 5 MG TAB PO SCH (17:09)
[2022-04-16] VITALS (64 sets, daily range): BP systolic 38–102; BP diastolic 17–65
[2022-04-16] MEDS: PHENYLEPHRINE IV 250 ML IV SCH (01:09)
[2022-04-16] MEDS: MORPHINE SULF 30 mg ER tab PO SCH ×2 (06:00→13:38)
[2022-04-16] MEDS: InsuLIN REG 1unit/0.01ml Soln (100units/ml) SC SCH ×3 (06:41→17:00)
[2022-04-16] MEDS: ACCU-CHEK COMFORT CURVE STRIP VI SCH ×3 (06:41→17:00)
[2022-04-16] MEDS: SODIUM CHLORIDE 0.9% 1,000 ML IV SCH ×4 (07:45→17:05)
[2022-04-16] MEDS ORDERED: PHENYLEPHRINE INJ 80 MG in SODIUM CHL 0.9% 242 ML IV SCH (07:45)
[2022-04-16] MEDS ORDERED: NOREPINEPHRINE BITARTRATE 32 MG in SODIUM CHL 0.9% 218 ML IV SCH (07:45)
[2022-04-16] MEDS: ENSURE CLEAR Apple 8oz Carton PO SCH ×3 (08:00→17:04)
[2022-04-16] MEDS: OCTREOTIDE ACETATE 500 MCG in SODIUM CHL 0.9% 99 ML IV SCH ×2 (08:51→17:05)
[2022-04-16] MEDS: cefTRIAXone 1GM/50ML D5W 50 ML IV SCH (09:25)
[2022-04-16 09:27] LABS: Basophils # (auto) 0.1 10 ^3/uL (0-0.2); Basophils % (auto) 0.6 % (0.0-2.0); Eosinophils # (auto) 0 10 ^3/uL (0-0.8); Eosinophils % (auto) 0.1 % (0.0-7.0); Hematocrit 52.4 % (41.0-53.0); Hemoglobin 17.1 g/dL (13.5-17.5); Lymphocytes # (auto) 0.8 10 ^3/uL (0.4-5.4); Lymphocytes % (auto) 3.8 % (10.0-50.0); Mean Corpuscular Hemoglobin 30.7 pg (28.0-32.0); Mean Corpuscular Hgb Conc. 32.6 g/dL (32.0-36.0); Mean Corpuscular Volume 94.2 fL (80.0-100.0); Monocytes # (auto) 1.5 10 ^3/uL (0-1.3); Neutrophils # (auto) 19.2 10 ^3/uL (1.6-8.6); Neutrophils % (auto) 88.5 % (37.0-80.0); Nucleated Red Blood Cells % 0.4 %; Red Blood Cells 5.56 10^6/uL (4.5-5.90); Red Cell Distribution Width 18.6 % (11.8-14.3); White Blood Cell 21.7 10^3/uL (4.4-10.8)
[2022-04-16 09:41] LABS: BUN/Creatinine Ratio 37.2; Calcium 7.3 mg/dL (8.5-10.1)
[2022-04-16 09:45] LABS: Lactic Acid w/Reflex 3.1 mmol/L (0.4-2.0)
[2022-04-16 09:47] LABS: Potassium 5.6 mmol/L (3.5-5.1)
[2022-04-16] MEDS: PANTOPRAZOLE 40 MG/10 ML VIAL INJ IV SCH (10:00)
[2022-04-16] MEDS: DULoxetine HCL 30 MG CAP PO SCH (10:00)
[2022-04-16] MEDS: AZITHROMYCIN 500MG/ 250ML 250 ML IV SCH (10:00)
[2022-04-16] MEDS ORDERED: MORPHINE SULFATE INJ 2 MG/ml SYRG IV PRN (14:00)
[2022-04-16] MEDS ORDERED: LORazepam 2MG/ML-1ML VIAL IV PRN (14:00)
[2022-04-16] MEDS: ZOLPIDEM TARTRATE 5 MG TAB PO SCH (17:04)
[2022-04-16] MEDS ORDERED: VANCOMYCIN PER PHARMACY 0 MG IV SCH (18:00)
[2022-04-16] MEDS ORDERED: VANCOMYCIN 1GM/250ML 250 ML IV ONE (18:45)
== END 2022-04-16 18:38 | DRG 871 ==
LOC: ER 15:22 → EDBD 15:22 → TELE 19:46 → ICU WEST 04-16 03:27
PROVIDERS: ADMIT Internal Medicine; ATTEND Internal Medicine
PROC: 5A1945Z Respiratory Ventilation, 24-96 Consecutive Hours (ICD-10-PCS; principal; 2022-04-14)
PROC: 0BH17EZ Insertion of Endotracheal Airway into Trachea, Via Natural or Artificial Opening (ICD-10-PCS; 2022-04-14)
PROC: 30233N1 Transfusion of Nonautologous Red Blood Cells into Peripheral Vein, Percutaneous Approach (ICD-10-PCS; 2022-04-14)
PROC: 30233R1 Transfusion of Nonautologous Platelets into Peripheral Vein, Percutaneous Approach (ICD-10-PCS; 2022-04-14)
DX: A41.9 Sepsis, unspecified organism (principal); J15.211 Pneumonia due to Methicillin susceptible Staphylococcus aureus; R65.21 Severe sepsis with septic shock; J96.00 Acute respiratory failure, unspecified whether with hypoxia or hypercapnia; C18.9 Malignant neoplasm of colon, unspecified; D68.9 Coagulation defect, unspecified; K92.0 Hematemesis; R18.8 Other ascites; N17.9 Acute kidney failure, unspecified; C78.00 Secondary malignant neoplasm of unspecified lung; E87.20 Acidosis, unspecified; C78.7 Secondary malignant neoplasm of liver and intrahepatic bile duct; E78.5 Hyperlipidemia, unspecified; E86.0 Dehydration; I10 Essential (primary) hypertension; J45.909 Unspecified asthma, uncomplicated; D69.6 Thrombocytopenia, unspecified; Z20.822 Contact with and (suspected) exposure to COVID-19; E11.65 Type 2 diabetes mellitus with hyperglycemia; E87.5 Hyperkalemia; F41.9 Anxiety disorder, unspecified; Z88.5 Allergy status to narcotic agent; Z79.899 Other long term (current) drug therapy; Z85.038 Personal history of other malignant neoplasm of large intestine; Z80.8 Family history of malignant neoplasm of other organs or systems; Z79.84 Long term (current) use of oral hypoglycemic drugs
CPT/HCPCS: 36415; 36600; 70450; 71045; 80048; 80053; 81001; 82140; 82805; 82962; 83605; 83735; 84100; 84132; 85025; 85610; 86850; 86900; 86901; 86920; 87070; 87077; 87081; 87186; 87205; 87426; 93005; 94002; 94003; 96360; C9113; G0378; J0696; J1815; J2250; J2405; J3430